=== PATIENT | male | born 1970 | race Caucasian/White ===

== ENCOUNTER 2018-10-04 20:44 | Observation (INO) | payer SELFPAY ==
--- NOTE | 2018-10-04 21:59 | RAD REPORT ---
EXAM DESCRIPTION: CT - Stone Protocol - 10/04/2018 9:42 pm CLINICAL HISTORY: Abdominal pain, abdominal cramping, testicular swelling COMPARISON: None. TECHNIQUE: Axial [address] imaging of the abdomen and pelvis was performed without IV contrast. No IV contrast was given because of allergy, abnormal renal function, patient refusal or physician re quest. Oral contrast was given. All CT scans are performed using dose optimization technique as appropriate and may include automated exposure control or mA/KV adjustment according to patient size. FINDINGS: No suspicious findings in the lung bases. No pericardial thickening or effusion. The liver, spleen and pancreas show no suspicious findings on non-contrast imaging. Gallbladder is co ntracted. No biliary tree dilatation. No hydronephrosis or suspicious renal mass. No significant adrenal finding. Isodense renal masses an d pyelonephritis cannot be excluded in the absence of IV contrast. The urinary bladder is without sig nificant finding. No dilated bowel loops or bowel wall thickening. No free air, pneumatosis or free fluid. No inflammat ory stranding within the peritoneal or retroperitoneal spaces. No hernia, mass or bulky lymphadenopat hy. Edematous/inflammatory stranding is seen in the midline and left-side perineum extending into the scrotum. Prominent scrotal wall edema is present. Fluid attenuation is present. No air in the soft t issues. Bilateral inguinal lymph nodes are present. A few small lymph nodes are seen along the external iliac chain. No acute bone finding. Prominent disc and endplate degenerative change present at L5-S1 with L5 pars defects present. IMPRESSION: Infectious/inflammatory process of the scrotum extending into the fat left-side perineum . No air, abscess or drainable fluid collection in the involved tissues. No extension into the floor th e pelvis. Patient has a few nonspecific reactive type lymph nodes in each groin and along the external iliac va sculature. Full assessment is limited is the absence of IV contrast.
[2018-10-04 22:07] LABS: Absolute Lymphocytes (CBC) 1.9 K/uL (0.7-4.9); Absolute Monocytes 1.2 K/uL (0.1-1.3); Basophils % 0.4 % (0-1.3); Eosinophils % 0.2 % (0-4.4); Hematocrit 42.6 % (39.6-49.0); Lymphocytes % 10.4 % (15.3-44.8); MPV 8.4 fL (7.6-11.3); Monocytes % 6.5 % (3.3-12.3); RBC Red Blood Cell Count 4.72 M/uL (4.33-5.43)
--- NOTE | 2018-10-04 22:11 | RAD REPORT ---
EXAM DESCRIPTION: US - Scrotum Testicles - 10/04/2018 10:00 pm CLINICAL HISTORY: Scrotal pain and swelling COMPARISON: None. FINDINGS: Diffuse thickening and edema of the scrotal wall tissues noted with hyperemia on Doppler e valuation. Small bilateral hydroceles are present. Doppler evaluation shows normal blood flow within the testicular tissue. No intra testicular mass jhon ntified. An 8 millimeter left epididymal cyst is present. Epididymis and testicular tissue does not a ppear abnormally hyperemic. No hernia or other extratesticular abnormality. IMPRESSION: No testicular torsion or intratesticular abnormality. Diffuse scrotal wall thickening and edema.
[2018-10-04 22:23] LABS: Albumin 3.4 g/dL (3.4-5.0); Bilirubin Direct 0.1 mg/dL (0-0.2); Bilirubin Total 0.5 mg/dL (0.2-1.0); Potassium 3.8 mmol/L (3.5-5.1); Protein, Total 8.1 g/dL (6.4-8.2)
[2018-10-04] MEDS ORDERED: FENTANYL CITR 100 MCG/2 ML ONE (22:31)
[2018-10-04 22:41] LABS: Urine Blood TRACE (NEG); Urine Glucose 2+ (NEG); Urine Protein NEGATIVE (NEG)
[2018-10-04] MEDS ORDERED: PIPER/TAZO/NS 3.375gm 3.375 GM/100 ML BAG ONE (22:47)
[2018-10-04 23:38] LABS: Urine Bacteria <20 /HPF (NONE SEEN); Urine Culture Reflex Order NOT NEEDED; Urine RBC <5 /HPF (NONE SEEN)
--- NOTE | 2018-10-05 00:04 | EDPHYS ---
Physician Documentation [facility] Name: Nilesh Flanagan Age: 48 yrs Sex: Male : 1970 Arrival Date: 10/04/2018 Time: 20:52 Bed 28 Private MD: ED Physician Michael Cortes HPI: 10/04 23:55 This 48 yrs old Male presents to ER via Ambulatory with complaints of gs Abdominal Pain. 23:55 The patient presents with scrotal pain, swelling, tenderness. Onset: The gs symptoms/episode began/occurred 2 day(s) ago, and became worse and became persistent. Modifying factors: The symptoms are alleviated by nothing, the symptoms are aggravated by movement. Associated signs and symptoms: Pertinent positives: abdominal pain. Associated signs and symptoms: Pertinent negatives: fever. Severity of symptoms: At their worst the symptoms were moderate, in the emergency department the symptoms are unchanged. The patient has not experienced similar symptoms in the past. The patient has not recently seen a physician. Historical: - Allergies: 20:54 No Known Allergies; ak1 - Home Meds: 20:54 None [Active]; ak1 - PMHx: 20:54 None; ak1 - PSHx: 20:54 None; ak1 - Immunization history:: Adult Immunizations unknown. - Social history:: Smoking status: Patient uses tobacco products, smokes two packs cigarettes per day. - Ebola Screening: : No symptoms or risks identified at this time. ROS: 23:55 All other systems are negative. gs Exam: 23:55 Head/Face: Normocephalic, atraumatic. Eyes: Pupils equal round and reactive to light, gs extra-ocular motions intact. Lids and lashes normal. Conjunctiva and sclera are non-icteric and not injected. Cornea within normal limits. Periorbital areas with no swelling, redness, or edema. ENT: Nares patent. No nasal discharge, no septal abnormalities noted. Tympanic membranes are normal and external auditory canals are clear. Oropharynx with no redness, swelling, or masses, exudates, or evidence of obstruction, uvula midline. Mucous membranes moist. Neck: Trachea midline, no thyromegaly or masses palpated, and no cervical lymphadenopathy. Supple, full range of motion without nuchal rigidity, or vertebral point tenderness. No Meningismus. Chest/axilla: Normal chest wall appearance and motion. Nontender with no deformity. No lesions are appreciated. Cardiovascular: Regular rate and rhythm with a normal S1 and S2. No gallops, murmurs, or rubs. Normal PMI, no JVD. No pulse deficits. Respiratory: Lungs have equal breath sounds bilaterally, clear to auscultation and percussion. No rales, rhonchi or wheezes noted. No increased work of breathing, no retractions or nasal flaring. Back: No spinal tenderness. No costovertebral tenderness. Full range of motion. Skin: Warm, dry with normal turgor. Normal color with no rashes, no lesions, and no evidence of cellulitis. MS/ Extremity: Pulses equal, no cyanosis. Neurovascular intact. Full, normal range of motion. Neuro: Awake and alert, GCS 15, oriented to person, place, time, and situation. Cranial nerves II-XII grossly intact. Motor strength 5/5 in all extremities. Sensory grossly intact. Cerebellar exam normal. Normal gait. 23:55 Constitutional: The patient appears alert, awake. 23:55 Abdomen/GI: Palpation: moderate abdominal tenderness, in the left lower quadrant, rebound tenderness, is not appreciated. 23:55 : Male external genitalia: swelling, tenderness, of the left testicle is noted. Vital Signs: 20:54 BP 156 / 93; Pulse 103; Resp 22; Temp 98; Pulse Ox 98% on R/A; Weight 113.4 kg (R); ak1 Height 5 ft. 7 in. (170.18 cm) (R); Pain 10/10; 22:35 BP 130 / 73; Pulse 90; Resp 18; Pulse Ox 95% on R/A; Pain 5/10; mg2 23:48 BP 154 / 93; Pulse 85; Resp 16; Pulse Ox 96% on R/A; tl3 10/05 00:18 BP 125 / 84; Pulse 78; Resp 18; Temp 98; Pulse Ox 98% on R/A; Pain 0/10; mg2 10/04 20:54 Body Mass Index 39.16 (113.40 kg, 170.18 cm) ak1 MDM: 10/04 21:22 Patient medically screened. gs 23:55 Differential diagnosis: nonspecific abdominal pain, UTI, CELLULITIS,NEC gs FASC,TORSION,ORCHITIS. Data reviewed: vital signs, nurses notes. 10/05 00:01 Response to treatment: the patient's symptoms have mildly improved after treatment, and gs as a result, I will discharge patient. 00:01 Physician consultation: Yamileth Barker MD and will see patient in inpatient room. 10/04 21:25 Order name: Basic Metabolic Panel; Complete Time: 22:26 10/04 21:25 Order name: CBC with Diff; Complete Time: : 10/04 21:25 Order name: Hepatic Function; Complete Time: : 10/04 21:25 Order name: Lipase; Complete Time: : 10/04 21:25 Order name: Urine Microscopic Only; Complete Time: 00: 10/04 22:28 Order name: Blood Culture* 10/04 21:25 Order name: CT Stone Protocol; Complete Time: : 10/04 21:25 Order name: US Scrotum Testicles; Complete Time: 22: 10/04 22:37 Order name: Urine Dipstick--Ancillary (enter results) [facility] 10/05 00:39 Order name: CONS Pharmacy Consult [facility] 10/05 00:39 Order name: CONS Physician Consult [facility] 10/04 21:25 Order name: IV Saline Lock; Complete Time: 21:45 10/04 21:25 Order name: Labs collected and sent; Complete Time: 21:45 10/04 21:25 Order name: Urine Dipstick-Ancillary (obtain specimen); Complete Time: 22:34 10/05 00:39 Order name: Regular EDMS Administered Medications: 10/04 22:23 Drug: fentaNYL (PF) 50 mcg Route: IVP; Site: right forearm; mg2 10/05 00:14 Follow up: Response: No adverse reaction; Marked relief of symptoms; Pain is decreased mg2 10/04 22:49 Drug: Zosyn 3.375 grams Route: IVPB; Infused Over: 60 mins; Site: right forearm; mg2 23:47 Follow up: IV Status: Completed infusion; IV Intake: 100ml tl3 10/05 00:14 Follow up: Response: No adverse reaction; IV Status: Completed infusion mg2 00:14 Drug: Flagyl 500 mg Volume: 100 ml; Route: IVPB; Rate: 200 ml/hr; Infused Over: 30 mg2 mins; Site: right forearm; 01:05 Follow up: Response: No adverse reaction; IV Status: Completed infusion mg2 Disposition: 10/05/18 00:02 Hospitalization ordered by Tomas Mercado for Inpatient Admission. Preliminary diagnosis is Cellulitis of perineum. - Bed requested for Telemetry/MedSurg (Inpatient). - Status is Inpatient Admission. mg2 - Condition is Stable. - Problem is new. - Symptoms have improved. UTI on Admission? No Signatures: Dispatcher [employer] EDMS Iva Calixto RN RN Carolyne Hdz RN RN ak1 Michael Cortes MD MD Jose Hoffman RN RN mg2 Myrna Ty RN tl3 Corrections: (The following items were deleted from the chart) 00:36 00:02 Hospitalization Ordered by Tomas Mercado MD for Inpatient Admission. Preliminary diagnosis is Cellulitis of perineum. Bed requested for Telemetry/MedSurg (Inpatient). Status is Inpatient Admission. Condition is Stable. Problem is new. Symptoms have improved. UTI on Admission? No. 01:06 00:36 10/05/2018 00:02 Hospitalization Ordered by Tomas Mercado MD for Inpatient mg2 Admission. Preliminary diagnosis is Cellulitis of perineum. Bed requested for Telemetry/MedSurg (Inpatient). Status is Inpatient Admission. Condition is Stable. Problem is new. Symptoms have improved. UTI on Admission? No.
--- NOTE | 2018-10-05 00:04 | ER ---
Nurse's Notes [facility] Name: Nilesh Flanagan Age: 48 yrs Sex: Male : 1970 Arrival Date: 10/04/2018 Time: 20:52 Bed 28 Private MD: Diagnosis: Cellulitis of perineum Presentation: 10/04 20:52 Presenting complaint: Patient states: abd cramps with testicular swelling started last ak1 night. pt stated he "pulled my groin, made a hernia" 3 weeks [employer]. Transition of care: patient was not received from another setting of care. Onset of symptoms was October 03, 2018. Risk Assessment: Do you want to hurt yourself or someone else? Patient reports no desire to harm self or others. Care prior to arrival: None. 20:52 Method Of Arrival: Ambulatory ak1 20:52 Acuity: BRYNN 3 ak1 10/05 00:17 Initial Sepsis Screen: Does the patient meet any 2 criteria? No. Patient's initial mg2 sepsis screen is negative. Does the patient have a suspected source of infection? Yes: Other: scrotal. Historical: - Allergies: 10/04 20:54 No Known Allergies; ak1 - Home Meds: 20:54 None [Active]; ak1 - PMHx: 20:54 None; ak1 - PSHx: 20:54 None; ak1 - Immunization history:: Adult Immunizations unknown. - Social history:: Smoking status: Patient uses tobacco products, smokes two packs cigarettes per day. - Ebola Screening: : No symptoms or risks identified at this time. Screenin:49 Abuse screen: Denies threats or abuse. Nutritional screening: No deficits noted. tl3 Tuberculosis screening: No symptoms or risk factors identified. Fall Risk None identified. Assessment: 23:49 Reassessment: pt sleeping heavily, arouses easily, repositioned for comfort. tl3 10/05 00:14 General: Appears in no apparent distress. comfortable, Behavior is calm, cooperative. mg2 Pain: Complains of pain in left testicle and left lower quadrant Pain does not radiate. Pain currently is 2 out of 10 on a pain scale. Quality of pain is described as aching, Pain began gradually, Is intermittent. Neuro: Level of Consciousness is awake, alert, obeys commands, Oriented to person, place, time, situation. Cardiovascular: Capillary refill < 3 seconds Patient's skin is warm and dry. Respiratory: Airway is patent Respiratory effort is even, unlabored, Respiratory pattern is regular, symmetrical. GI: Abdomen is round non-distended. : Reports pain scrotum, testicle, since last week. EENT: No signs and/or symptoms were reported regarding the EENT system. Derm: Skin is intact, is healthy with good turgor, Skin is pink, warm \\T\\ dry. normal. Musculoskeletal: No signs and/or symptoms reported regarding the musculoskeletal system. 00:18 Reassessment: patient informed about the plan for hospitalization, he agreed. mg2 Vital Signs: 10/04 20:54 BP 156 / 93; Pulse 103; Resp 22; Temp 98; Pulse Ox 98% on R/A; Weight 113.4 kg (R); ak1 Height 5 ft. 7 in. (170.18 cm) (R); Pain 10/10; 22:35 BP 130 / 73; Pulse 90; Resp 18; Pulse Ox 95% on R/A; Pain 5/10; mg2 23:48 BP 154 / 93; Pulse 85; Resp 16; Pulse Ox 96% on R/A; tl3 10/05 00:18 BP 125 / 84; Pulse 78; Resp 18; Temp 98; Pulse Ox 98% on R/A; Pain 0/10; mg2 10/04 20:54 Body Mass Index 39.16 (113.40 kg, 170.18 cm) ak1 ED Course: 10/04 20:52 Patient arrived in ED. ag3 20:53 Triage completed. ak1 20:54 Arm band placed on Patient placed in an exam room, on a stretcher, Patient notified of ak1 wait time. 20:59 Michael Cortes MD is Attending Physician. gs 21:26 Jose Hoffman, ELLI is Primary Nurse. mg2 21:44 CT Stone Protocol In Process Unspecified. EDMS 22:00 US Scrotum Testicles In Process Unspecified. EDMS 22:00 Ultrasound completed. Patient tolerated well. sg3 23:49 Patient has correct armband on for positive identification. Bed in low position. Call tl3 light in reach. Side rails up X 1. Pulse ox on. NIBP on. 23:49 No provider procedures requiring assistance completed. tl3 10/05 00:02 Tomas Mercado MD is Hospitalizing Provider. gs 00:16 Inserted saline lock: 20 gauge in right forearm, using aseptic technique. Blood mg2 collected. 00:52 Patient admitted, IV remains in place. mg2 Administered Medications: 10/04 22:23 Drug: fentaNYL (PF) 50 mcg Route: IVP; Site: right forearm; mg2 10/05 00:14 Follow up: Response: No adverse reaction; Marked relief of symptoms; Pain is decreased mg2 10/04 22:49 Drug: Zosyn 3.375 grams Route: IVPB; Infused Over: 60 mins; Site: right forearm; mg2 23:47 Follow up: IV Status: Completed infusion; IV Intake: 100ml tl3 10/05 00:14 Follow up: Response: No adverse reaction; IV Status: Completed infusion mg2 00:14 Drug: Flagyl 500 mg Volume: 100 ml; Route: IVPB; Rate: 200 ml/hr; Infused Over: 30 mg2 mins; Site: right forearm; 01:05 Follow up: Response: No adverse reaction; IV Status: Completed infusion mg2 Intake: 10/04 23:47 IV: 100ml; Total: 100ml. tl3 Outcome: 10/05 00:02 Decision to Hospitalize by Provider. gs 00:53 Admitted to Tele accompanied by tech, via wheelchair, room 430, with chart, Report mg2 called to ELLI Bain 00:53 Condition: stable 00:53 Instructed on the need for admit, Demonstrated understanding of instructions, follow-up care. 01:06 Patient left the ED. mg2 Signatures: Dispatcher [employer] EDMS Carolyne Hdz RN RN ak1 Michael Cortes MD MD Rosalina Neri 3 Myrna Ty RN RN tl3 Jose Hoffman RN RN mg2 Maggie Berry 3
[2018-10-05] MEDS ORDERED: METRONIDAZOLE 500mg IVPB 500 MG/100 ML BAG IV ONE (00:22)
[2018-10-05] MEDS ORDERED: ACETAMINOPHEN 500 MG TAB PO PRN (00:35)
[2018-10-05] MEDS ORDERED: MORPHINE 4 MG/ML SYR IV PRN (00:35)
[2018-10-05] MEDS ORDERED: ONDANSETRON 4 MG/2 ML VIAL IV PRN (00:35)
[2018-10-05] MEDS ORDERED: NA CHLORIDE 0.9% 1,000 ML IV SCH (01:00)
[2018-10-05] MEDS ORDERED: VANCOMYCIN 1.25 GM in NA CHLORIDE 0.9% 250 ML IVPB SCH (01:00)
[2018-10-05] MEDS ORDERED: VANCOMYCIN 1 GM/VIAL ONE ×2 (01:53→04:57)
[2018-10-05] MEDS ORDERED: VANCOMYCIN 500 MG/VIAL ONE (01:54)
[2018-10-05] MEDS ORDERED: NA CHLORIDE 0.9% 250 ML ONE (01:55)
[2018-10-05 03:58] VITALS: BMI 41.4
[2018-10-05] MEDS ORDERED: VANCOMYCIN 750 MG in NA CHLORIDE 0.9% 150 ML IVPB ONE (04:00)
[2018-10-05] MEDS ORDERED: NA CHLORIDE 0.9% 100 ML IV ONE ×2 (04:57→05:31)
[2018-10-05] MEDS ORDERED: PIPERACIL/TAZO 4.5 GM VIAL IV ONE (05:02)
[2018-10-05] MEDS: PIPER/TAZO/NS 4.5gm 4.5 GM/100 ML BAG IVPB SCH ×2 (06:00→12:17)
--- NOTE | 2018-10-05 07:51 | P.HP ---
Certification for Inpatient Patient admitted to: Inpatient With expected LOS: >2 Midnights Patient will require the following post-hospital care: None Practitioner: I am a practitioner with admitting privileges, knowledge of patient current condition, hospital course, and medical plan of care. Services: Services provided to patient in accordance with Admission requirements found in Title 42 Section 412.3 of the Code of Federal Regulations Patient History Date of Service: 10/05/18 Reason for admission: Scrotal cellulitis History of Present Illness: Patient is a 48-year-old gentleman who came into the hospital with scrotal cellulitis. Patient's cellulitis is worse over the last 4 days. He finally came into the hospital for further evaluation. He is at erythema and he said he has noted some bloody drainage. Otherwise no other complaints. He will need to have admission for IV antibiotics. The we have also Consulted Dr. Barker urology. Patient will be evaluated further later today. Continue with IV antibiotic therapy at this time. Allergies No Known Drug Allergies Allergy (Verified 10/05/18 01:37) Unknown No Known Allergies Allergy (Uncoded 09/19/17 04:12) Unknown Home Medications: NK [No Home Meds] 10/05/18 - Past Medical/Surgical History Has patient received pneumonia vaccine in the past: No Diabetic: No Past Medical History: Patient denies medical history Past Surgical History: Patient denies surgical history - Family History Father Family History: Reviewed- Non-Contributory - Social History Smoking Status: Never smoker Alcohol use: No CD- Drugs: No Caffeine use: Yes Place of Residence: Home Review of Systems 10-point ROS is otherwise unremarkable Physical Examination - Vital Signs Temperature: 98.1 F Blood Pressure: 128/69 Pulse: 79 Respirations: 18 Pulse Ox (%): 98 - Physical Exam General: Alert, In no apparent distress, Oriented x3 HEENT: Atraumatic, PERRLA, Mucous membr. moist/pink, EOMI, Sclerae nonicteric Neck: Supple, 2+ carotid pulse no bruit, No LAD, Without JVD or thyroid abnormality Respiratory: Clear to auscultation bilaterally, Normal air movement Cardiovascular: Regular rate/rhythm, Normal S1 S2, No murmurs Gastrointestinal: Normal bowel sounds, Soft and benign, Non-distended, No tenderness Musculoskeletal: No clubbing, No swelling, No tenderness Integumentary: No rashes Neurological: Normal gait, Normal speech, Normal strength at 5/5 x4 extr, Normal tone, Sensation intact, Cranial nerves 3-12 intact, Normal affect Lymphatics: No axilla or inguinal lymphadenopathy - Studies Laboratory Data (last 24 hrs) 10/04/18 21:30: WBC 18.2 H, Hgb 14.7, Hct 42.6, Plt Count 261 10/04/18 21:30: Sodium 132 L, Potassium 3.8, BUN 10, Creatinine 1.00, Glucose 226 H, Total Bilirubin 0.5, AST 12 L, ALT 31, Alkaline Phosphatase 79, Lipase 74 Male Exam - Male Exam Scrotum: Edema, Tenderness Assessment & Plan - Problems (Diagnosis) (1) Cellulitis, scrotum Current Visit: Yes Status: Acute - Plan 1. Continue with IV antibiotic 2. Continue with local wound care 3. Urology consultation 4. Gentle IV hydration 5. Monitor CBC 6. Pain control 7. GI and DVT prophylaxis Discharge Plan: Home Plan to discharge in: Greater than 2 days - Advance Directives Does patient have a Living Will: No Does patient have a Durable POA for Healthcare: No - Code Status/Comfort Care Code Status Assessed: Yes Code Status: Full Code Critical Care: No Time Spent Managing PTS Care (In Minutes): 45
[2018-10-05] MEDS ORDERED: INFLUENZA VACCINE (for 3y+) 0.5 ML DOSE IMVAC ONE (08:00)
[2018-10-05] MEDS ORDERED: TRAMADOL HCL 50 MG TAB PO PRN (08:32)
[2018-10-05] MEDS ORDERED: HYDROCODONE/APAP 7.5/325 MG TAB PO PRN (08:32)
[2018-10-05 09:22] LABS: Absolute Lymphocytes (CBC) 1.7 K/uL (0.7-4.9); Absolute Monocytes 1.1 K/uL (0.1-1.3); Absolute Neutrophil 13.6 K/uL (1.8-8.0); Basophils % 0.6 % (0-1.3); Eosinophils % 0.6 % (0-4.4); Hematocrit 43.3 % (39.6-49.0); Lymphocytes % 10.1 % (15.3-44.8); MPV 8.3 fL (7.6-11.3); Monocytes % 6.6 % (3.3-12.3); RBC Red Blood Cell Count 4.78 M/uL (4.33-5.43)
--- NOTE | 2018-10-05 11:47 | P.DS ---
Admission Date: 10/05/18 Discharge Date: 10/05/18 Primary Care Provider: none Disposition: ROUTINE DISCHARGE Discharge Condition: GOOD Reason for Admission: Scrotal cellulitis Consultations: Urology-Dr. Barker Procedures: Scrotal US: COMPARISON: None. FINDINGS: Diffuse thickening and edema of the scrotal wall tissues noted with hyperemia on Doppler evaluation. Small bilateral hydroceles are present. Doppler evaluation shows normal blood flow within the testicular tissue. No intra testicular mass identified. An 8 millimeter left epididymal cyst is present. Epididymis and testicular tissue does not appear abnormally hyperemic. No hernia or other extratesticular abnormality. IMPRESSION: No testicular torsion or intratesticular abnormality. Diffuse scrotal wall thickening and edema. CT scan: COMPARISON: None. TECHNIQUE: Axial [address] imaging of the abdomen and pelvis was performed without IV contrast. No IV contrast was given because of allergy, abnormal renal function, patient refusal or physician request. Oral contrast was given. All CT scans are performed using dose optimization technique as appropriate and may include automated exposure control or mA/KV adjustment according to patient size. FINDINGS: No suspicious findings in the lung bases. No pericardial thickening or effusion. The liver, spleen and pancreas show no suspicious findings on non-contrast imaging. Gallbladder is contracted. No biliary tree dilatation. No hydronephrosis or suspicious renal mass. No significant adrenal finding. Isodense renal masses and pyelonephritis cannot be excluded in the absence of IV contrast. The urinary bladder is without significant finding. No dilated bowel loops or bowel wall thickening. No free air, pneumatosis or free fluid. No inflammatory stranding within the peritoneal or retroperitoneal spaces. No hernia, mass or bulky lymphadenopathy. Edematous/inflammatory stranding is seen in the midline and left-side perineum extending into the scrotum. Prominent scrotal wall edema is present. Fluid attenuation is present. No air in the soft tissues. Bilateral inguinal lymph nodes are present. A few small lymph nodes are seen along the external iliac chain. No acute bone finding. Prominent disc and endplate degenerative change present at L5-S1 with L5 pars defects present. IMPRESSION: Infectious/inflammatory process of the scrotum extending into the fat left-side perineum. No air, abscess or drainable fluid collection in the involved tissues. No extension into the floor the pelvis. Patient has a few nonspecific reactive type lymph nodes in each groin and along the external iliac vasculature. Medical problem list: Left scrotal cellulitis New diagnosis diabetes type 2 Elevated blood pressure without hypertension Obesity, BMI 41.5 Brief History of Present Illness: 48-year-old male presented to the emergency room with inflammation to the left scrotal region. This is been present for several days. Patient seen and evaluated in the emergency room. Patient found to have left scrotal cellulitis. Scrotal ultrasound negative. CT scan showed inflammation indicating cellulitis to the left scrotal region. No abscess identified. Patient admitted for treatment. Hospital Course: Patient seen in evaluated for left scrotal cellulitis. CT scan revealed no abscess. Patient seen and evaluated by urology. Patient desired to go home as he has a sick father that requires attention. White count improved. Urology felt no need for surgical intervention. Urology recommends medical management. At discharge he will continue with Augmentin 875 mg 1 pill twice daily for 10 days. A limited supply of tramadol 50 mg 1 pill 3 times a day as needed for pain will be provided. Patient will need a follow up with urology within 1 week to follow up this hospitalization. Patient found to have diabetes. Hemoglobin A1c 8.0. At discharge patient will be started on metformin 500 mg 1 pill twice daily. Recommendation is to maintain blood sugars less 140 fasting and less than 200 after meals. Further adjustment in his medication may be required. Patient will need to establish care with a local PCP to continue his care. Lifestyle modification education provided. Patient had mild elevation in blood pressure. No hypertension identified. He will need to monitors blood pressures daily. If blood pressures remain above 140/90 consistently the patient may require medication. This can be further addressed by his PCP. Vital Signs/Physical Exam: Temp Pulse Resp BP Pulse Ox 98.9 F 85 24 H 143/66 H 94 10/05/18 08:00 10/05/18 08:00 10/05/18 08:00 10/05/18 08:00 10/05/18 08:00 General: Alert, In no apparent distress, Oriented x3, Cooperative HEENT: Atraumatic Neck: Supple Respiratory: Clear to auscultation bilaterally, Normal air movement Cardiovascular: Normal pulses, Regular rate/rhythm Gastrointestinal: Normal bowel sounds, Soft and benign, Non-distended, No tenderness, No masses, No rebound, No guarding Musculoskeletal: No tenderness, No warmth, Other (Minimal erythema to the left scrotal region. No abscess noted. No exudate noted.) Neurological: Normal speech, Normal strength at 5/5 x4 extr, Normal tone, Normal affect External genitalia: Other (Uncircumcised male.) Laboratory Data at Discharge: WBC 16.5 K/uL (4.3-10.9) H 10/05/18 09:04 Hgb 14.5 g/dL (13.6-17.9) 10/05/18 09:04 Hct 43.3 % (39.6-49.0) 10/05/18 09:04 Plt Count 254 K/uL (152-406) 10/05/18 09:04 Sodium 132 mmol/L (136-145) L 10/04/18 21:30 Potassium 3.8 mmol/L (3.5-5.1) 10/04/18 21:30 BUN 10 mg/dL (7-18) 10/04/18 21:30 Creatinine 1.00 mg/dL (0.55-1.3) 10/04/18 21:30 Glucose 226 mg/dL (74-106) H 10/04/18 21:30 Total Bilirubin 0.5 mg/dL (0.2-1.0) 10/04/18 21:30 AST 12 U/L (15-37) L 10/04/18 21:30 ALT 31 U/L (12-78) 10/04/18 21:30 Alkaline Phosphatase 79 U/L (45-117) 10/04/18 21:30 Lipase 74 U/L (73-393) 10/04/18 21:30 Home Medications: Amoxicillin/Potassium Clav [Augmentin 875-125 Tablet] 1 each PO BID #20 tablet 10/05/18 Metformin HCl 500 mg PO BID #60 tablet 10/05/18 traMADol HCL [Ultram*] 50 mg PO TID PRN #15 tab 10/05/18 New Medications: Amoxicillin/Potassium Clav [Augmentin 875-125 Tablet] 1 each PO BID #20 tablet Metformin HCl 500 mg PO BID #60 tablet traMADol HCL [Ultram*] 50 mg PO TID PRN #15 tab PRN Reason: Pain Mild Patient Discharge Instructions: 1. Patient will need to follow up with a PCP to establish care and to further address his condition. 2. Patient seen in evaluated for left scrotal cellulitis. CT scan revealed no abscess. Patient seen and evaluated by urology. White count improved. Urology felt no need for surgical intervention. Urology recommends medical management. At discharge he will continue with Augmentin 875 mg 1 pill twice daily for 10 days. A limited supply of tramadol 50 mg 1 pill 3 times a day as needed for pain will be provided. Patient will need a follow up with urology within 1 week to follow up this hospitalization. 3. Patient found to have diabetes. Hemoglobin A1c 8.0. At discharge patient will be started on metformin 500 mg 1 pill twice daily. Recommendation is to maintain blood sugars less 140 fasting and less than 200 after meals. Further adjustment in his medication may be required. Patient will need to establish care with a local PCP to continue his care. Lifestyle modification education provided. 4. Patient had mild elevation in blood pressure. No hypertension identified. He will need to monitors blood pressures daily. If blood pressures remain above 140/90 consistently the patient may require medication. This can be further addressed by his PCP. Diet: ADA Activity: Ad shady Time spent managing pt's care (in minutes): 55
[2018-10-05 11:49] VITALS: O2SAT 94
--- NOTE | 2018-10-05 12:15 | CON ---
History Of Present Illness: This is a 48-year-old gentleman who was in good state of health until 3 weeks ago. Started feeling some strain in the lower groin area, but the pain disappeared and 4 days ago started having some swelling with pain at 10/10, so he came to the emergency room last night. He said there had been no redness. He was admitted for scrotal cellulitis last night. CT scan showed some inflammatory areas in the perineum. An ultrasound showed diffuse scrotal wall thickening and ed brooks. He has had no fevers or chills. He says his swelling is down today. His pain is down to 3-4/1 0. He has no fever, chills, nausea, vomiting, diarrhea, constipation. He has no lower urinary tract symptoms. No kidney stones. No bladder issues. No scrotal problems before. No testicular problem s. No penile problems. No diabetes. No rectal issues. Interestingly, when [place] was [place] [address], with another white count pending right now. The issue is that he says he has an 80-year-old father at home that does not know how to feed himself and he would like to go home to ke care of his father, so we will repeat a white count, see if it is coming down and in that case I humaira ponce we could possibly send him home on p.o. Augmentin or something similar to that. If he agrees to return if he gets worse, I believe in that case, we can make that an exception for him. Past Medical History: No diabetes. Past Surgical History: None. Family History: Noncontributory. Social History: Nonsmoker. No drug use. Some caffeine use. He resides at home with his 80-year-ol d dad, who is not able to take care of himself. Review of Systems: A 10-point review of systems otherwise unremarkable. Physical Examination: General: The patient was afebrile, stable. In general, he is alert, apparently in good health and o riented x3. HEENT: Atraumatic, normocephalic. Neck: Supple. Respiratory: Clear. Cardiovascular: S1-S2. Gastrointestinal: Normal bowel sounds. Musculoskeletal: No swelling, no tenderness. Skin: No rashes. Urologic: Penis was uncircumcised. No lesion. Scrotum, both testicles were descended. He has some phlegmon on the left side extending down to the perineum, but there was no fluctuance. There were n o redness and no super tenderness in the area. Rectal: Examination was deferred at this point. Laboratory Data: Reviewed. White count was 87147. H and H and platelets normal. Chemistry shows s odium 132, still on the low side. Glucose was 226, slightly high. Rest of the electrolytes were nor mal. Ultrasound reviewed. CT scan reviewed. Assessment: Inflammatory cellulitis of the scrotal, left perineal area. Plan: To repeat white count. If it is normalizing and the patient is afebrile, is improving, I clayton chu we can make an exception, send him home on p.o. antibiotics, possible Augmentin. 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 He can follow up with me in about a week, and if he is yoly ling to return if things get worse, I believe it is okay to let him go. TOY/KRUPAL Voice ID: [id number] Report ID: [id number]
[2018-10-05 13:06] VITALS: BP 129/83; TEMP 98
[2018-10-05] MEDS ORDERED: VANCOMYCIN 2 GM in NA CHLORIDE 0.9% 500 ML IVPB SCH (16:00)
== END 2018-10-05 14:30 | disposition home or self-care (01) ==
LOC: ER 20:44 → 4TH 10-05 00:36
PROVIDERS: ADMIT Hospitalist; ATTEND Hospitalist
DX: N49.2 Inflammatory disorders of scrotum (principal); E11.9 Type 2 diabetes mellitus without complications; R03.0 Elevated blood-pressure reading, without diagnosis of hypertension; E66.9 Obesity, unspecified; Z68.41 Body mass index [BMI] 40.0-44.9, adult; Z23 Encounter for immunization
CPT/HCPCS: 36415; 74176; 76377; 76870; 80048; 80076; 81003; 81015; 83036; 83690; 85025; 87040; G0008; G0378; J2543; J3010; J7030; Q2035

== ENCOUNTER 2019-04-20 18:39 | Inpatient (IN) | payer SELFPAY ==
[2019-04-20 19:37] LABS: Absolute Lymphocytes (CBC) 1.6 K/uL (0.7-4.9); Basophils % 0.4 % (0-1.3); Hematocrit 40.9 % (39.6-49.0); Lymphocytes % 10.5 % (15.3-44.8); MPV 8.6 fL (7.6-11.3); RBC Red Blood Cell Count 4.42 M/uL (4.33-5.43)
[2019-04-20 19:49] LABS: Potassium 3.7 mmol/L (3.5-5.1)
[2019-04-20] MEDS ORDERED: DIAZEPAM 10 MG/2 ML INJ SYRINGE ONE (20:05)
[2019-04-20] MEDS ORDERED: VANCOMYCIN 1 GM/VIAL ONE (20:16)
[2019-04-20] MEDS ORDERED: Levofloxacin500mg IV 500 MG/100 ML BAG IV ONE (20:17)
[2019-04-20] MEDS ORDERED: NA CHLORIDE 0.9% 250 ML ONE (20:17)
--- NOTE | 2019-04-20 20:39 | RAD REPORT ---
EXAM DESCRIPTION: US - Extremity Nonvascular Limited - 04/20/2019 8:24 pm CLINICAL HISTORY: Swelling of the perineum COMPARISON: None. FINDINGS: Limited sonographic evaluation in the perineum was performed. In the perineum soft tissues between the scrotum and anus there is a 4.3 x 2.8 x 2.1 heterogeneous hypoechoic collection. Central ly this mass is anechoic. Abscess in the perineum is the most likely etiology.
--- NOTE | 2019-04-20 22:18 | EDPHYS ---
Physician Documentation [facility] Name: Nilesh Flanagan Age: 49 yrs Sex: Male : 1970 Arrival Date: 04/20/2019 Time: 18:42 Bed 20 Private MD: ED Physician Evans Lopez HPI: 04/20 21:55 This 49 yrs old Male presents to ER via Ambulatory with complaints of jr8 Testicular Swelling. 21:55 Onset: The symptoms/episode began/occurred gradually, 4 day(s) ago. Modifying factors: jr8 The symptoms are alleviated by nothing, the symptoms are aggravated by movement, pressure. Associated signs and symptoms: The patient has no apparent associated signs or symptoms. Severity of symptoms: At their worst the symptoms were moderate, in the emergency department the symptoms are unchanged. The patient has experienced a previous episode. The patient has not recently seen a physician. 21:56 Patient stated that he has had perineum abscess in past and thinks he has another one. jr8 Stated that he is tender and having swelling from the base of his testicles to his buttock . Historical: - Allergies: 18:44 No Known Drug Allergies; hj - PMHx: 18:44 Diabetes - NIDDM; hj - PSHx: 18:44 None; hj - Immunization history:: Adult Immunizations not up to date. - Social history:: Smoking status: Patient uses tobacco products, smokes one-half pack cigarettes per day. - Ebola Screening: : No symptoms or risks identified at this time. ROS: 21:56 Eyes: Negative for injury, pain, redness, and discharge, ENT: Negative for injury, jr8 pain, and discharge, Neck: Negative for injury, pain, and swelling, Cardiovascular: Negative for chest pain, palpitations, and edema, Respiratory: Negative for shortness of breath, cough, wheezing, and pleuritic chest pain, Abdomen/GI: Negative for abdominal pain, nausea, vomiting, diarrhea, and constipation, Back: Negative for injury and pain, MS/Extremity: Negative for injury and deformity, Neuro: Negative for headache, weakness, numbness, tingling, and seizure. 21:56 Skin: Positive for abscess, cellulitis, of the buttocks and pelvis. Exam: 21:56 Eyes: Pupils equal round and reactive to light, extra-ocular motions intact. Lids and jr8 lashes normal. Conjunctiva and sclera are non-icteric and not injected. Cornea within normal limits. Periorbital areas with no swelling, redness, or edema. ENT: Nares patent. No nasal discharge, no septal abnormalities noted. Tympanic membranes are normal and external auditory canals are clear. Oropharynx with no redness, swelling, or masses, exudates, or evidence of obstruction, uvula midline. Mucous membranes moist. Neck: Trachea midline, no thyromegaly or masses palpated, and no cervical lymphadenopathy. Supple, full range of motion without nuchal rigidity, or vertebral point tenderness. No Meningismus. Cardiovascular: Regular rate and rhythm with a normal S1 and S2. No gallops, murmurs, or rubs. Normal PMI, no JVD. No pulse deficits. Respiratory: Lungs have equal breath sounds bilaterally, clear to auscultation and percussion. No rales, rhonchi or wheezes noted. No increased work of breathing, no retractions or nasal flaring. Abdomen/GI: Soft, non-tender, with normal bowel sounds. No distension or tympany. No guarding or rebound. No evidence of tenderness throughout. Back: No spinal tenderness. No costovertebral tenderness. Full range of motion. MS/ Extremity: Pulses equal, no cyanosis. Neurovascular intact. Full, normal range of motion. Neuro: Awake and alert, GCS 15, oriented to person, place, time, and situation. Cranial nerves II-XII grossly intact. Motor strength 5/5 in all extremities. Sensory grossly intact. Cerebellar exam normal. Normal gait. 21:56 Skin: Patient has swelling and induration to perineum on left side that extends from base of testicles to inferior portion of the gluteal cleft. No draining present . Vital Signs: 18:44 BP 132 / 77; Pulse 109; Resp 18; Temp 98.3(O); Pulse Ox 95% on R/A; Weight 113.4 kg; hj Height 5 ft. 6 in. (167.64 cm); Pain 10/10; 19:26 BP 119 / 61; Pulse 83; Resp 20 S; Temp 98.6(O); Pulse Ox 96% on R/A; cc3 20:45 BP 127 / 67; Pulse 78; Resp 19 S; Pulse Ox 97% on R/A; cc3 21:05 BP 111 / 66; Pulse 82; Resp 19 S; Pulse Ox 96% on R/A; cc3 22:06 BP 120 / 58; Pulse 94; Resp 18 S; Pulse Ox 96% on R/A; cc3 23:10 BP 106 / 78; Pulse 81; Resp 18 S; Pulse Ox 96% on R/A; cc3 18:44 Body Mass Index 40.35 (113.40 kg, 167.64 cm) hj MDM: 18:54 Patient medically screened. jr8 21:56 Data reviewed: vital signs, nurses notes, lab test result(s), radiologic studies, CT jr8 scan, ultrasound. Data interpreted: Pulse oximetry: on room air is 96 %. Interpretation: normal. Counseling: I had a detailed discussion with the patient and/or guardian regarding: the historical points, exam findings, and any diagnostic results supporting the discharge/admit diagnosis, lab results, radiology results, the need for further work-up and treatment in the hospital. ED course: US was completed along with blood work. Discussed case with Dr. Stapleton. Wants CT completed as well which is now in process. Waiting for results . 22:15 ED course: CT shows left perineal abscess. Dr. Stapleton accepted and will consult on jr8 case. NPO midnight. Hospitalist to admit . 04/20 19:04 Order name: CBC with Diff; Complete Time: 19:54 jr8 04/20 19:04 Order name: Basic Metabolic Panel; Complete Time: 19:54 jr8 04/20 19:04 Order name: Blood Culture Adult (2) jr8 04/20 19:04 Order name: Procalcitonin; Complete Time: 20:19 jr8 04/20 22:28 Order name: CBC with Automated Diff EDMS 04/20 22:28 Order name: CBC with Automated Diff EDMS 04/20 19:04 Order name: US Extrmty Nonvasular Limited; Complete Time: 20:40 jr8 04/20 22:28 Order name: Comprehensive Metabolic Panel EDMS 04/20 22:28 Order name: Comprehensive Metabolic Panel EDMS 04/20 22:28 Order name: Magnesium EDMS 04/20 22:28 Order name: Magnesium EDMS 04/20 22:28 Order name: Phosphorus EDMS 04/20 22:28 Order name: Phosphorus EDMS 08/04 22:30 Order name: Urinalysis [facility] 04/20 19:04 Order name: IV; Complete Time: 19:29 [facility] 04/20 20:43 Order name: CT Pelvis w cont [facility] 04/20 22:28 Order name: CONS Physician Consult [facility] 04/20 22:28 Order name: NPO EDGA Administered Medications: 20:08 Drug: Valium 5 mg Route: IVP; Site: right antecubital; rr5 20:35 Follow up: Response: No adverse reaction; Marked relief of symptoms cc3 20:15 Drug: LevaQUIN 500 mg Volume: 100 ml; Route: IVPB; Infused Over: 60 mins; Site: right cc3 antecubital; 21:15 Follow up: Response: No adverse reaction; IV Status: Completed infusion; IV Intake: cc3 100ml 21:15 Drug: vancoMYCIN 1 grams Route: IVPB; Infused Over: 2 hrs; Site: right antecubital; cc3 23:40 Follow up: Response: No adverse reaction; IV Status: Completed infusion; IV Intake: cc3 250ml 22:20 Drug: morphine 4 mg Route: IVP; Site: right antecubital; cc3 23:00 Follow up: Response: No adverse reaction; Pain is decreased cc3 22:25 Drug: Zofran 4 mg Route: IVP; Site: right antecubital; cc3 23:00 Follow up: Response: No adverse reaction; Nausea is decreased cc3 Disposition: 04/20/19 22:16 Hospitalization ordered by Tomas Mercado for Inpatient Admission. Preliminary diagnosis is Cutaneous abscess of other sites - Perineum . - Bed requested for Telemetry/MedSurg (Inpatient). - Status is Inpatient Admission. cc3 - Condition is Stable. - Problem is new. - Symptoms have improved. UTI on Admission? No Addendum: 04/22/2019 19:53 Co-signature as Attending Physician, Evans Lopez MD. r n Signatures: Dispatcher [employer] [facility] Iva Calixto RN RN mw Nieto, Roman, MD MD rn Roszak, Josh, PA PA 8 Derrick Galaviz RN RN hj Cordel, Charlene cc3 Varun Brower RN RN rr5 Corrections: (The following items were deleted from the chart) 04/20 21:56 21:55 Onset: The symptoms/episode began/occurred gradually, 2 day(s) ago, jr8 jr8 22:17 22:16 Hospitalization Ordered by Tomas Mercado MD for Inpatient Admission. Preliminary jr8 diagnosis is Cutaneous abscess of other sites. Bed requested for Telemetry/MedSurg (Inpatient). Status is Inpatient Admission. Condition is Stable. Problem is new. Symptoms have improved. UTI on Admission? No. jr8 22:50 22:17 04/20/2019 22:16 Hospitalization Ordered by Tomas Mercado MD for Inpatient mw Admission. Preliminary diagnosis is Cutaneous abscess of other sites - Perineum . Bed requested for Telemetry/MedSurg (Inpatient). Status is Inpatient Admission. Condition is Stable. Problem is new. Symptoms have improved. UTI on Admission? No. jr8 23:49 22:50 04/20/2019 22:16 Hospitalization Ordered by Tomas Mercado MD for Inpatient cc3 Admission. Preliminary diagnosis is Cutaneous abscess of other sites - Perineum . Bed requested for Telemetry/MedSurg (Inpatient). Status is Inpatient Admission. Condition is Stable. Problem is new. Symptoms have improved. UTI on Admission? No. mw
--- NOTE | 2019-04-20 22:18 | ER ---
Nurse's Notes [facility] Name: Nilesh Flanagan Age: 49 yrs Sex: Male : 1970 Arrival Date: 04/20/2019 Time: 18:42 Bed 20 Private MD: Diagnosis: Cutaneous abscess of other sites-Perineum Presentation: 04/20 18:42 Presenting complaint: Patient states: this started Sunday, swelling in my L hj testicle, in between my rectum and now its spreading to the L butt cheeks and L leg area; reports fever and chills;. Transition of care: patient was not received from another setting of care. Onset of symptoms was April 20, 2019. Risk Assessment: Do you want to hurt yourself or someone else? Patient reports no desire to harm self or others. Initial Sepsis Screen: Does the patient meet any 2 criteria? HR > 90 bpm. Yes Does the patient have a suspected source of infection? Yes: Skin breakdown/wound. Care prior to arrival: None. 18:42 Method Of Arrival: Ambulatory 18:42 Acuity: BRYNN 3 hj Triage Assessment: 19:15 General: Appears in no apparent distress. uncomfortable, Behavior is calm, cooperative, cc3 appropriate for age. Pain: Complains of pain in testicular area. Historical: - Allergies: 18:44 No Known Drug Allergies; hj - PMHx: 18:44 Diabetes - NIDDM; hj - PSHx: 18:44 None; hj - Immunization history:: Adult Immunizations not up to date. - Social history:: Smoking status: Patient uses tobacco products, smokes one-half pack cigarettes per day. - Ebola Screening: : No symptoms or risks identified at this time. Screenin:15 Abuse screen: Denies threats or abuse. Denies injuries from another. Nutritional cc3 screening: No deficits noted. Tuberculosis screening: No symptoms or risk factors identified. Fall Risk Ambulatory Aid- None/Bed Rest/Nurse Assist (0 pts). Gait- Normal/Bed Rest/Wheelchair (0 pts) Mental Status- Oriented to own ability (0 pts). Assessment: 19:15 Reassessment: Patient appears in no apparent distress at this time. Patient and/or cc3 family updated on plan of care and expected duration. Pain level reassessed. Patient is alert, oriented x 3, equal unlabored respirations, skin warm/dry/pink. Received this male patient from morning shift [facility] as a case of testicular swelling. Still being seen by OSCAR Bustamante awaiting orders. General: Appears in no apparent distress. uncomfortable, Behavior is calm, cooperative, appropriate for age. Pain: Complains of pain in testicular area. Neuro: Level of Consciousness is awake, alert, obeys commands, Oriented to person, place, time, situation, Appropriate for age. Cardiovascular: Denies chest pain, Capillary refill < 3 seconds Patient's skin is warm and dry. Respiratory: Airway is patent Respiratory effort is even, unlabored, Respiratory pattern is regular, symmetrical. GI: Abdomen is round obese. : No signs and/or symptoms were reported regarding the genitourinary system. EENT: No signs and/or symptoms were reported regarding the EENT system. Derm: Skin is intact, is healthy with good turgor, Skin is pink, warm \T\ dry. normal. Musculoskeletal: Circulation, motion, and sensation intact. Range of motion: intact in all extremities. 20:05 Reassessment: patient complaining of cramps and cannot stay still while doing the rr5 ultrasound. ED provider informed with order made and carried out. 20:30 Reassessment: Patient appears in no apparent distress at this time. Patient and/or cc3 family updated on plan of care and expected duration. Pain level reassessed. Patient is alert, oriented x 3, equal unlabored respirations, skin warm/dry/pink. Ultrasound done bedside, awaiting result. Patient denies pain at this time. Patient states feeling better. Patient states symptoms have improved. 21:17 Reassessment: Patient appears in no apparent distress at this time. Patient and/or cc3 family updated on plan of care and expected duration. Pain level reassessed. Patient is alert, oriented x 3, equal unlabored respirations, skin warm/dry/pink. Patient taken by broadcast operations technician to their department by stretcher. 21:40 Reassessment: Patient appears in no apparent distress at this time. Patient and/or cc3 family updated on plan of care and expected duration. Pain level reassessed. Patient is alert, oriented x 3, equal unlabored respirations, skin warm/dry/pink. Patient came back from CT scan department, awaiting result. Patient denies pain at this time. 22:06 Reassessment: Patient appears in no apparent distress at this time. Patient and/or cc3 family updated on plan of care and expected duration. Pain level reassessed. Patient is alert, oriented x 3, equal unlabored respirations, skin warm/dry/pink. Patient denies pain at this time. 23:10 Reassessment: Patient appears in no apparent distress at this time. Patient and/or cc3 family updated on plan of care and expected duration. Pain level reassessed. Patient is alert, oriented x 3, equal unlabored respirations, skin warm/dry/pink. Patient for admission, room available in 225, report called and handed over to ELLI Brower for continuity of care and management. Patient denies pain at this time. Patient states feeling better. Patient states symptoms have improved. 23:45 Reassessment: Patient appears in no apparent distress at this time. Patient and/or cc3 family updated on plan of care and expected duration. Pain level reassessed. Patient is alert, oriented x 3, equal unlabored respirations, skin warm/dry/pink. Patient left ER for admission vitally stable by wheelchair escorted by senior laboratory technician David. No valuables left in the patient's room. Patient denies pain at this time. Patient states feeling better. Patient states symptoms have improved. Vital Signs: 18:44 BP 132 / 77; Pulse 109; Resp 18; Temp 98.3(O); Pulse Ox 95% on R/A; Weight 113.4 kg; hj Height 5 ft. 6 in. (167.64 cm); Pain 10/10; 19:26 BP 119 / 61; Pulse 83; Resp 20 S; Temp 98.6(O); Pulse Ox 96% on R/A; cc3 20:45 BP 127 / 67; Pulse 78; Resp 19 S; Pulse Ox 97% on R/A; cc3 21:05 BP 111 / 66; Pulse 82; Resp 19 S; Pulse Ox 96% on R/A; cc3 22:06 BP 120 / 58; Pulse 94; Resp 18 S; Pulse Ox 96% on R/A; cc3 23:10 BP 106 / 78; Pulse 81; Resp 18 S; Pulse Ox 96% on R/A; cc3 18:44 Body Mass Index 40.35 (113.40 kg, 167.64 cm) ED Course: 18:42 Patient arrived in ED. hj 18:44 Triage completed. hj 18:44 Arm band placed on left wrist. hj 18:53 Jono Bustamante PA is PHCP. jr8 18:53 Evans Lopez MD is Attending Physician. jr8 19:06 Lena Munoz is Primary Nurse. cc3 19:15 Patient has correct armband on for positive identification. Bed in low position. Call cc3 light in reach. Side rails up X 1. Pulse ox on. NIBP on. 19:20 Inserted saline lock: 20 gauge in right antecubital area, using aseptic technique. cc3 Blood collected. 20:24 Ultrasound completed. Patient tolerated well. sg3 20:24 US Extrmty Nonvasular Limited In Process Unspecified. EDMS 21:50 CT Pelvis w cont In Process Unspecified. EDMS 22:16 Tomas Mercado MD is Hospitalizing Provider. jr8 23:10 No provider procedures requiring assistance completed. Patient admitted, IV remains in cc3 place. Administered Medications: 20:08 Drug: Valium 5 mg Route: IVP; Site: right antecubital; rr5 20:35 Follow up: Response: No adverse reaction; Marked relief of symptoms cc3 20:15 Drug: LevaQUIN 500 mg Volume: 100 ml; Route: IVPB; Infused Over: 60 mins; Site: right cc3 antecubital; 21:15 Follow up: Response: No adverse reaction; IV Status: Completed infusion; IV Intake: cc3 100ml 21:15 Drug: vancoMYCIN 1 grams Route: IVPB; Infused Over: 2 hrs; Site: right antecubital; cc3 23:40 Follow up: Response: No adverse reaction; IV Status: Completed infusion; IV Intake: cc3 250ml 22:20 Drug: morphine 4 mg Route: IVP; Site: right antecubital; cc3 23:00 Follow up: Response: No adverse reaction; Pain is decreased cc3 22:25 Drug: Zofran 4 mg Route: IVP; Site: right antecubital; cc3 23:00 Follow up: Response: No adverse reaction; Nausea is decreased cc3 Intake: 21:15 IV: 100ml; Total: 100ml. cc3 23:40 IV: 250ml; Total: 350ml. cc3 Outcome: 22:16 Decision to Hospitalize by Provider. jr8 23:45 Admitted to Med/surg accompanied by tech, via wheelchair, room 225, with chart, Report cc3 called to ELLI Brower 23:45 Condition: stable 23:45 Instructed on the need for admit, Demonstrated understanding of instructions. 23:49 Patient left the ED. cc3 Signatures: Dispatcher [employer] EDMS Jono Bustamante PA PA jr8 Derrick Galaviz RN RN Rosalnia Neri 3 Lena Munoz cc3 Varun Brower RN RN rr5 Corrections: (The following items were deleted from the chart) 18:46 18:42 Initial Sepsis Screen: Does the patient meet any 2 criteria? No. Patient's initial sepsis screen is negative. Does the patient have a suspected source of infection? No. Patient's initial sepsis screen is negative. 18:47 18:44 Pulse 109bpm; Resp 18bpm; Pulse Ox 95% RA; Temp 98.3F Oral; 113.4 kg; Height 5 hj ft. 6 in.; BMI: 40.3; Pain 10/10; hj 19:55 19:26 BP 119 / 61; Pulse 83bpm; Resp 20bpm; Spontaneous; Pulse Ox 96% RA; cc3 cc3
[2019-04-20] MEDS ORDERED: MORPHINE 4 MG/ML SYR ONE (22:22)
[2019-04-20] MEDS ORDERED: ONDANSETRON 4 MG/2 ML VIAL IV PRN (22:23)
[2019-04-20] MEDS ORDERED: ONDANSETRON 4 MG/2 ML VIAL ONE (22:23)
[2019-04-20] MEDS ORDERED: ACETAMINOPHEN 500 MG TAB PO PRN (22:23)
[2019-04-20] MEDS ORDERED: Levofloxacin500mg IV 500 MG/100 ML BAG IV SCH (23:00)
[2019-04-21 00:12] VITALS: BMI 40.8
[2019-04-21] MEDS: NA CHLORIDE 0.9% 1,000 ML IV SCH ×3 (00:20→19:00)
[2019-04-21] MEDS: METRONIDAZOLE 500mg IVPB 500 MG/100 ML BAG IV SCH ×4 (00:20→19:45)
[2019-04-21] MEDS ORDERED: MORPHINE 4 MG/ML SYR IV PRN (01:57)
[2019-04-21 06:09] LABS: Absolute Lymphocytes (CBC) 1.7 K/uL (0.7-4.9); Basophils % 0.6 % (0-1.3); Lymphocytes % 10.4 % (15.3-44.8); MPV 8.7 fL (7.6-11.3); RBC Red Blood Cell Count 4.47 M/uL (4.33-5.43)
[2019-04-21 06:24] LABS: Albumin 3.1 g/dL (3.4-5.0); Bilirubin Total 0.6 mg/dL (0.2-1.0); Magnesium 2.2 mg/dL (1.8-2.4); Phosphorus 2.8 mg/dL (2.5-4.9); Potassium 4.2 mmol/L (3.5-5.1); Protein, Total 7.5 g/dL (6.4-8.2)
[2019-04-21] MEDS: ENOXAPARIN 40 MG/0.4 ML SQ SCH (09:00)
--- NOTE | 2019-04-21 09:45 | P.HP ---
Certification for Inpatient Patient admitted to: Inpatient With expected LOS: >2 Midnights Patient will require the following post-hospital care: None Practitioner: I am a practitioner with admitting privileges, knowledge of patient current condition, hospital course, and medical plan of care. Services: Services provided to patient in accordance with Admission requirements found in Title 42 Section 412.3 of the Code of Federal Regulations Patient History Date of Service: 04/20/19 Reason for admission: Perineal abscess History of Present Illness: Patient with known year old gentleman who came to the hospital with rectal pain. Patient had a lot of tenderness in came to the ER. Ultrasound revealed a perineal abscess. Patient walked downstairs and it ruptured. Patient had a large amount of purulent drainage. Patient is still having some drainage at this time. Patient has general surgery consultation. Patient would get IV antibiotics. Patient will be NPO pending surgical evaluation. Allergies No Known Drug Allergies Allergy (Verified 04/21/19 00:35) Unknown No Known Allergies Allergy (Uncoded 09/19/17 04:12) Unknown Home Medications: NK [No Home Meds] 04/21/19 - Past Medical/Surgical History Has patient received pneumonia vaccine in the past: Yes Diabetic: Yes -: diabetes Past Surgical History: Patient denies surgical history - Family History Father Family History: Reviewed- Non-Contributory - Social History Smoking Status: Current every day smoker Alcohol use: No CD- Drugs: No Caffeine use: Yes Place of Residence: Home Review of Systems 10-point ROS is otherwise unremarkable Physical Examination - Vital Signs Temperature: 97.7 F Blood Pressure: 117/73 Pulse: 76 Respirations: 20 Pulse Ox (%): 93 - Physical Exam General: Alert, In no apparent distress, Oriented x3 HEENT: Atraumatic, PERRLA, Mucous membr. moist/pink, EOMI, Sclerae nonicteric Neck: Supple, 2+ carotid pulse no bruit, No LAD, Without JVD or thyroid abnormality Respiratory: Clear to auscultation bilaterally, Normal air movement Cardiovascular: Regular rate/rhythm, Normal S1 S2 Gastrointestinal: Normal bowel sounds, Soft and benign, Non-distended, No tenderness Musculoskeletal: No clubbing, No swelling, No tenderness Integumentary: No rashes Neurological: Normal gait, Normal speech, Normal strength at 5/5 x4 extr, Normal tone, Sensation intact, Cranial nerves 3-12 intact, Normal affect Lymphatics: No axilla or inguinal lymphadenopathy Rectal: Induration, Tenderness - Studies Laboratory Data (last 24 hrs) 04/20/19 19:20: Sodium 134 L, Potassium 3.7, BUN 10, Creatinine 1.19, Glucose 227 H 04/20/19 19:20: WBC 15.5 H, Hgb 13.7, Hct 40.9, Plt Count 197 Assessment & Plan - Problems (Diagnosis) (1) Perineal abscess Current Visit: Yes Status: Acute (2) DM2 (diabetes mellitus, type 2) Current Visit: Yes Status: Acute - Plan 1. Continue with IV antibiotic 2. Continue with local wound care 3. Wound care consultation & surgical consultation 4. Gentle IV hydration 5. Monitor CBC 6. Strict blood sugar monitoring 7. Pain control 8. GI and DVT prophylaxis Discharge Plan: Home Plan to discharge in: 48 Hours - Advance Directives Does patient have a Living Will: No Does patient have a Durable POA for Healthcare: No - Code Status/Comfort Care Code Status Assessed: Yes Code Status: Full Code Critical Care: No Time Spent Managing PTS Care (In Minutes): 40
--- NOTE | 2019-04-21 13:18 | RAD REPORT ---
EXAM DESCRIPTION: CT - Pelvis W/Cont - 04/20/2019 9:50 pm CLINICAL HISTORY: The patient is 49 years old and is Male; perineum abscess TECHNIQUE: Axial computed tomography images of the pelvis with intravenous contrast. Sagittal and coronal reformatted images were created and reviewed. This CT exam was performed using one or more of the following dose reduction techniques: automated exposure control, adjustment of the mA and/or kV according to patient size, and/or use of iterative reconstruction technique. COMPARISON: No relevant prior studies available. FINDINGS: BOWEL: Unremarkable. No obstruction. No mucosal thickening. APPENDIX: No findings to suggest acute appendicitis. INTRAPERITONEAL SPACE: Unremarkable. No free air. No significant fluid collection. BLADDER: The bladder is well distended. REPRODUCTIVE: Unremarkable as visualized. BONES/JOINTS: No acute fracture. SOFT TISSUES: A 2.4 x 1.8 cm fluid collection with mild peripheral enhancement along the left pe rineal region is present. There is no subcutaneous air. VASCULATURE: Unremarkable. No lower abdominal aortic aneurysm. LYMPH NODES: Prominent inguinal lymph nodes are present, likely reactive. IMPRESSION: Moderate sized left perineal abscess. No subcutaneous air to suggest Nena's gangrene . Electronically signed by: Christine Winters MD 04/20/2019 9:58 PM CDT Due to temporary technical issues with the PACS/Fluency reporting system, reports are being signed by the in house radiologist as a courtesy to ensure prompt reporting. The interpreting radiologist is f ully responsible for the content of the report.
[2019-04-21] MEDS ORDERED: NA CHLORIDE 0.9% 1,000 ML ONE (15:30)
--- NOTE | 2019-04-21 16:00 | P.HP ---
Date of Service: 04/21/19 PC: This 49-year-old male presented to the emergency room with severe perirectal pain for diagnosis and treatment. HPC: Patient has noticed increasing pain and discomfort down between his legs right on the perineum. There is swelling and discomfort in that area. 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 PMH: Diabetes PSHx: Negative SOC: No known allergy SYS REVIEW: No cough, wheeze, shortness of breath. Denies any chest pain or palpitations. Has had its previous boils in the area but nothing like this. O/E the exercise tolerance HEENT: Awake alert vital signs are stable Chest: Chest movement equal bilaterally ABD: Soft LOCO: Has area function tenderness is along the perineal line at the ever portion of the thigh right side DATA: White cell count, CT scan shows absence IMPRESSION: Perineal abscess PLAN: Causing the operating room for incision, drainage, sharp debridement of this abscess. The risks of this procedure have been discussed. The possibility of bleeding, infection, need for further surgeries and procedures as well as recurrence were outlined. He understands and wants us to proceed.
--- NOTE | 2019-04-21 16:57 | P.PN ---
Subjective Date of Service: 04/21/19 Chief Complaint: Perineal abscess Patient seen and examined at bedside. Chart reviewed and case discussed with Dr. Stapleton and nursing staff. No acute events noted overnight. Improving. Review of Systems 10-point ROS is otherwise unremarkable Physical Examination - Vital Signs Temperature: 98.3 F Blood Pressure: 124/78 Pulse: 71 Respirations: 20 Pulse Ox (%): 91 - Physical Exam General: Alert, In no apparent distress, Oriented x3 HEENT: Atraumatic, PERRLA, EOMI Neck: Supple, JVD not distended Respiratory: Clear to auscultation bilaterally, Normal air movement Cardiovascular: Regular rate/rhythm, Normal S1 S2 Gastrointestinal: Normal bowel sounds, No tenderness Musculoskeletal: No tenderness Integumentary: No rashes Neurological: Normal speech, Normal tone, Normal affect Lymphatics: No axilla or inguinal lymphadenopathy Rectal: Induration, Tenderness - Studies Laboratory Data (last 24 hrs) 04/20/19 19:20: Sodium 134 L, Potassium 3.7, BUN 10, Creatinine 1.19, Glucose 227 H 04/20/19 19:20: WBC 15.5 H, Hgb 13.7, Hct 40.9, Plt Count 197 Assessment And Plan - Plan 1. Continue with IV antibiotic 2. Continue with local wound care 3. Surgery consultation, pending I and D in the OR today with Dr. stapleton 4. Continue IV hydration 5. Monitor CBC 6. Strict blood sugar monitoring 7. Pain control 8. GI and DVT prophylaxis Plan: Anticipate discharge in the next 24 hr after I and D if clinically stable.
[2019-04-21] MEDS ORDERED: FENTANYL CITR 100 MCG/2 ML ONE (17:49)
[2019-04-21] MEDS ORDERED: MIDAZOLAM HCL 2 MG/2 ML INJ ONE (17:49)
[2019-04-21] MEDS ORDERED: PROPOFOL 200 MG/20 ML VIAL IV ONE (17:49)
[2019-04-21] MEDS ORDERED: SUCCINYLCHOLINE 20 MG/ML (10 ML) IV ONE (17:55)
[2019-04-21 19:17] VITALS: O2SAT 95
[2019-04-21] MEDS ORDERED: Levofloxacin500mg IV 500 MG/100 ML BAG IV SCH (21:00)
[2019-04-22] MEDS: METRONIDAZOLE 500mg IVPB 500 MG/100 ML BAG IV SCH ×3 (00:22→12:34)
[2019-04-22] MEDS: NA CHLORIDE 0.9% 1,000 ML IV SCH (03:11)
[2019-04-22 04:46] LABS: Urine Appearance CLEAR; Urine Bilirubin NEGATIVE (NEG); Urine Blood NEGATIVE (NEG); Urine Color YELLOW; Urine Glucose NEGATIVE (NEG); Urine Protein NEGATIVE (NEG); Urine pH 6.5 (5.0-7.0)
[2019-04-22 04:49] LABS: Urine Microscopic Reflex NO UMIC
[2019-04-22] MEDS: ENOXAPARIN 40 MG/0.4 ML SQ SCH (08:40)
[2019-04-22 12:43] VITALS: BP 130/89; TEMP 97.8
[2019-04-22] MEDS ORDERED: D50W 25 GM/50 ML SYRINGE IV PRN (12:48)
[2019-04-22] MEDS ORDERED: GLUCAGON 1 MG/VIAL IM PRN (12:48)
[2019-04-22 15:16] LABS: Absolute Lymphocytes (CBC) 1.4 K/uL (0.7-4.9); Basophils % 0.5 % (0-1.3); Hematocrit 41.6 % (39.6-49.0); Lymphocytes % 12.5 % (15.3-44.8); RBC Red Blood Cell Count 4.54 M/uL (4.33-5.43)
--- NOTE | 2019-04-22 15:25 | P.OP ---
Preoperative diagnosis: Perirectal abscess Postoperative diagnosis: The same Primary procedure: Incision, drainage, and sharp debridement of perirectal abscess Anesthesia: General Estimated blood loss: Less than 10 cc Operative Technique: The patient brought the operating room placed supine on the table. After the induction of adequate general endotracheal anesthesia the area of the abdomen is perineum was prepped with a Betadine solution, he was draped in usual aseptic manner. Attention was turned towards the perineal area. Just above the anus extending over the perineal body up towards the lateral portion of the scrotum there was a tubular like structure that was seen. This was consistent with the abscess seen on CT scan. Gentle pressure showed that this was artery draining just at the skin margin of the anus itself. A probe was gently placed into this and this was found to be a tract leading and connecting these 2 areas together. Using 11 blade displays this portion was opened. We were able to curette the area ran placing a 2. Nylon in there to keep it open and draining during the postoperative period. There was now NG infiltrated with 0.25% Marcaine At the end of the procedure a sterile dressing was applied and he was in a stable condition when sent to the recovery room. Needle sponge instrument count were correct. The 2. Nylon was used as a drain. Complications: None Drain(s): Other (#2 nylon) Transferred to: Recovery Room Condition: Good
[2019-04-22] MEDS ORDERED: INSULIN -REGULAR HUMAN 50 UNIT/0.5 ML ML SQ SCH (16:30)
--- NOTE | 2019-04-22 17:22 | PN ---
Date of Progress Note: 04/22/2019 Subjective: Patient seen and examined. Chart reviewed and case discussed with RN. Patient states h is pain is better. Had procedure done yesterday. Medications: List reviewed. Physical Examination: Vital Signs: Temperature 98.3, heart rate 86, blood pressure 151/81, respirations 20, O2 96% on room air. General: Awake, alert, oriented x3. Morbidly obese male, in some mild distress. CV: S1, S2. Regular rate and rhythm. Peripheral pulses present. Respiratory: Moving air well bilaterally. No wheezing or stridor. Gastrointestinal: Abdomen is soft, nontender, nondistended. Positive bowel sounds. Extremities: No clubbing, cyanosis, or edema. Neurologic: Nonfocal. Cranial nerves 2 through 12 intact grossly. No focal neurological deficit. Skin: Perineal region incision site clean, dry, intact. Mild erythema is present. Tenderness to pa lpation. Psych: Mood is okay. Affect is full. Insight and judgment are good. Laboratory Data: Blood glucose levels ranging from 132 to 142. Blood cultures, no growth to date. Assessment And Plan: A 49-year-old male with: 1.Perirectal abscess status post incision and drainage. We will continue with IV antibiotics. We w ill follow up on culture results. WBC count is elevated. We will repeat CBC in a.m. Appreciate Dr. Stapleton's input. 2.Diabetes mellitus type 2, non-insulin requiring, with hyperglycemia and abscess. We will add slid ing scale insulin and monitor blood glucose levels. 3.Morbid obesity. Monitor cultures. CBC in a.m. If improving, we will discharge on oral antibiotics. Continue DVT pr ophylaxis with Lovenox. SA/MODL Voice ID: [id number] Report ID: [id number]
--- NOTE | 2019-04-24 13:02 | DS ---
Date of Discharge: 04/22/2019 Certified Art Therapist: Dr. Stapleton, General Surgery. Procedure: Incision and drainage of perineal abscess. Admitting Diagnoses: 1. Perineal abscess. 2. Diabetes mellitus type 2. 3. Morbid obesity. Discharge Diagnoses: 1. Perineal and perirectal abscess, status post incision and drainage. 2. Morbid obesity. 3. Diabetes mellitus type 2. Hospital Course: Patient is a 49-year-old male admitted to the hospital for perineal abscess. Patient was taken to the OR by Dr. Stapleton for I and D. He was started on IV antibiotics and responded well. Blood cultures did not show any growth. His white count trended down. He was then cleared for discharge and then sent home in stable condition. Activity: As tolerated. Medications: As per medication reconciliation list. Followup: Follow up with primary care physician in 2 to 3 days. Follow up with surgeon, Dr. Stapleton on Sunday. Return to ER for worsening condition. Diet: Diabetic. For physical exam findings, please see progress note dictated on day of discharge. Total time spent discharging the patient was 35 minutes. EVANS Voice ID: [id number] Report ID: [id number] VIRI
== END 2019-04-22 16:12 | disposition home or self-care (01) | DRG 982 ==
LOC: ER 18:39 → ERHOLD 22:39 → 2ND 23:11
PROVIDERS: ADMIT Hospitalist; ATTEND Family Medicine
PROC: 0D9Q00Z Drainage of Anus with Drainage Device, Open Approach (ICD-10-PCS; principal; 2019-04-21 14:45)
DX: E11.628 Type 2 diabetes mellitus with other skin complications (principal); K61.1 Rectal abscess; L02.215 Cutaneous abscess of perineum; Z68.41 Body mass index [BMI] 40.0-44.9, adult; E66.01 Morbid (severe) obesity due to excess calories; E11.65 Type 2 diabetes mellitus with hyperglycemia; F17.210 Nicotine dependence, cigarettes, uncomplicated
CPT/HCPCS: 36415; 72193; 76882; 80048; 80053; 81003; 82962; 83735; 84100; 84145; 85025; 87040; 96365; 96366; 96367; 96375; 99285; J0330; J1650; J2250; J2405; J2704; J3010; J3360; J7030; Q9967

== ENCOUNTER 2019-10-28 19:02 | Emergency (ER) | payer SELFPAY ==
--- OUTSIDE RECORDS SUMMARY | 2019-10-28 19:04 | XMS REPORT ---
:1970 [facility] Address [address] [place] [address] Dr. Gould [address] [place] [id number] Care Team Providers Name Role Phone Unavailable Unavailable Unavailable Problems This patient has no known problems. Allergies, Adverse Reactions, Alerts This patient has no known allergies or adverse reactions. Medications This patient has no known medications.
[2019-10-28] MEDS ORDERED: LIDOCAINE 1% MPF 30 ML VIAL ONE (19:26)
[2019-10-28] MEDS ORDERED: BUPIVACAINE 0.5% PF 10 ML VIAL ONE (19:26)
[2019-10-28] MEDS ORDERED: TETANUS & DIPHTHERIA TOX,ADULT 0.5 ML VIAL ONE (19:41)
--- NOTE | 2019-10-28 20:04 | RAD REPORT ---
EXAM DESCRIPTION: RAD -Hand Left 3 View - 10/28/2019 7:51 pm CLINICAL HISTORY: Left hand pain status post injury FINDINGS: Comminuted, avulsion fracture involves the third distal phalanx. No dislocation
[2019-10-28] MEDS ORDERED: CLINDAMYCIN 600MG/D5W 600 MG/50 ML BAG IV ONE (20:53)
[2019-10-28] MEDS ORDERED: HYDROCODONE/APAP 10/325 TAB ONE (21:27)
--- NOTE | 2019-10-28 21:46 | EDPHYS ---
Physician Documentation [facility] Name: Nilesh Flanagan Age: 49 yrs Sex: Male : 1970 Arrival Date: 10/28/2019 Time: 19:04 Bed 14 Private MD: ED Physician Lavell Power HPI: 10/28 19:26 This 49 yrs old Male presents to ER via Ambulatory with complaints of Finger pm1 Injury. 19:26 The patient or guardian reports a laceration, irregular. The complaints affect the left pm1 middle finger. Context: The problem was sustained at home, resulted from Finger was cut by router blade as he was routing the edge of a piece of wood against the router fence. Onset: The symptoms/episode began/occurred just prior to arrival. Modifying factors: The symptoms are alleviated by pressure to area. Associated signs and symptoms: The patient has no apparent associated signs or symptoms. The patient has experienced a previous episode, many years ago, left thumb power tool injury. The patient has not recently seen a physician, and does not have an established primary care provider. Historical: - Allergies: 19:13 No Known Allergies; ca1 - Home Meds: 19:13 None [Active]; ca1 - PMHx: 19:13 Diabetes - NIDDM; ca1 - PSHx: 19:13 None; ca1 - Immunization history:: Adult Immunizations up to date, Last tetanus immunization: < 5 years ago. - Coronavirus screen:: The patient has NOT traveled to [place] in the past 14 days. The patient has NOT had contact with known/suspected case of Coronavirus?. - Social history:: Smoking status: Patient reports the use of cigarette tobacco products, smokes one pack cigarettes per day. - Ebola Screening: : Patient negative for fever greater than or equal to 101.5 degrees Fahrenheit, and additional compatible Ebola Virus Disease symptoms Patient denies exposure to infectious person Patient denies travel to an Ebola-affected area in the 21 days before illness onset No symptoms or risks identified at this time. ROS: 19:26 Constitutional: Negative for fever, chills, and weight loss, Cardiovascular: Negative pm1 for chest pain, palpitations, and edema, Respiratory: Negative for shortness of breath, cough, wheezing, and pleuritic chest pain, Abdomen/GI: Negative for abdominal pain, nausea, vomiting, diarrhea, and constipation. 19:26 Neuro: Negative for headache, weakness, numbness, tingling, and seizure. 19:26 MS/extremity: Positive for injury or acute deformity, of the left middle finger. 19:26 Skin: Positive for laceration(s), of the left middle finger. Exam: 19:26 Constitutional: This is a well developed, well nourished patient who is awake, alert, pm1 and in no acute distress. Head/Face: Normocephalic, atraumatic. Chest/axilla: Normal chest wall appearance and motion. Nontender with no deformity. No lesions are appreciated. Cardiovascular: Regular rate and rhythm with a normal S1 and S2. No gallops, murmurs, or rubs. Normal PMI, no JVD. No pulse deficits. Respiratory: Lungs have equal breath sounds bilaterally, clear to auscultation and percussion. No rales, rhonchi or wheezes noted. No increased work of breathing, no retractions or nasal flaring. 19:26 MS/ Extremity: Pulses equal, no cyanosis. Neurovascular intact. Full, normal range of motion. 19:26 Skin: Appearance: normal except for affected area, injury, avulsion(s), laceration(s), the wound is approximately 3 cm(s), of the distal phalanx of left middle finger. Vital Signs: 19:13 BP 151 / 104; Pulse 93; Resp 16 S; Temp 98(O); Pulse Ox 100% on R/A; Weight 117.93 kg ca1 (R); Height 5 ft. 7 in. (170.18 cm) (R); Pain 9/10; 20:30 BP 139 / 92; Pulse 76; Resp 16; Pulse Ox 92% on R/A; jb4 21:15 BP 141 / 92; Pulse 81; Resp 16; Pulse Ox 94% on R/A; jb4 19:13 Body Mass Index 40.72 (117.93 kg, 170.18 cm) ca1 MDM: 19:16 Patient medically screened. tw4 20:25 Data reviewed: vital signs. Data interpreted: Pulse oximetry: on room air is 100 %. pm1 Interpretation: normal. 20:45 Physician consultation: Eva Jimenez was contacted at 20:40, regarding consult, pm1 patient's condition, and will see patient In her office tomorrow at 11 AM to perform revision of his finger. Wash out well, cover with Xeroform, dress it, and give a prescription fo Keflex for 5 days. 21:39 Counseling: I had a detailed discussion with the patient and/or guardian regarding: the pm1 historical points, exam findings, and any diagnostic results supporting the discharge/admit diagnosis, radiology results, the need for outpatient follow up, for definitive care, Dr. Jimenez tomorrow at 11 AM for definitive care. 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 Exp: jb4 08/15/2021. Lot #: [id number]. } Route: IM; Site: right deltoid; 22:14 Follow up: Response: No adverse reaction 4 20:52 Drug: Cleocin 600 mg Route: IVPB; Infused Over: 30 mins; Site: right wrist; jb4 21:22 Follow up: Response: No adverse reaction; IV Status: Completed infusion; IV Intake: jb4 100ml 21:20 Drug: [place] 10 mg-325 mg 1 tabs {Note: Rass score 0.} Route: PO; jb4 22:14 Follow up: Response: No adverse reaction; Pain is decreased; RASS: Alert and Calm (0) page hospital Disposition: 10/28/19 21:45 Discharged to Home. Impression: Laceration without foreign body of left middle finger with damage to nail, Comminuted avulsion fracture of third distal phalanx. - Condition is Stable. - Discharge Instructions: Finger Fracture, Laceration Care, Adult. - Prescriptions for Keflex 500 mg Oral Capsule - take 1 capsule by ORAL route every 6 hours for 5 days; 20 capsule. Tylenol- Codeine #3 300-30 mg Oral Tablet - take 2 tablets by ORAL route every 6 hours As needed; 20 tablet. - Medication Reconciliation Form, Thank You Letter, Antibiotic Education, Prescription Opioid Use form. - Follow up: Emergency Department; When: As needed; Reason: Worsening of condition. Follow up: Private Physician; When: 2 - 3 days; Reason: Recheck today's complaints, Continuance of care, Re-evaluation by your physician. - Problem is new. - Symptoms have improved. - Notes: Eva Jimenez MD Aesthetic \T\amp; Reconstructive Plastic Surgeon Associate to [facility] [phone] [place] [address], [address] [place], [place] [address] YOUR APPOINTMENT IS AT 11 AM. BE THERE EARLY. Addendum: 10/30/2019 08:11 Co-signature as Attending Physician, Lavell Power MD I agree with the assessment and t w4 plan of care. Signatures: Dispatcher [employer] EDMS Elva Palm RN RN Jose Moss NP DOG FOOD SHREDDER OPERATOR pm1 Rory Fowler RN RN jb4 Lavell Power MD MD tw4 Corrina Castellon RN RN ca1 Corrections: (The following items were deleted from the chart) 10/28 22:15 21:45 10/28/2019 21:45 Discharged to Home. Impression: Laceration without foreign body jb4 of left middle finger with damage to nail; Comminuted avulsion fracture of third distal phalanx. Condition is Stable. Forms are Medication Reconciliation Form, Thank You Letter, Antibiotic Education, Prescription Opioid Use. Follow up: Emergency Department; When: As needed; Reason: Worsening of condition. Follow up: Private Physician; When: 2 - 3 days; Reason: Recheck today's complaints, Continuance of care, Re-evaluation by your physician. Problem is new. Symptoms have improved. pm1
--- NOTE | 2019-10-28 21:46 | ER ---
Nurse's Notes [facility] Name: Nilesh Flanagan Age: 49 yrs Sex: Male : 1970 Arrival Date: 10/28/2019 Time: 19:04 Bed 14 Private MD: Diagnosis: Laceration without foreign body of left middle finger with damage to nail;Comminuted avulsion fracture of third distal phalanx Presentation: 10/28 19:10 Presenting complaint: Patient states: I was making cabinet drawers when my middle ca1 finger on the L hand slipped into the router. Transition of care: patient was not received from another setting of care. Onset of symptoms was October 28, 2019. Risk Assessment: Do you want to hurt yourself or someone else? Patient reports no desire to harm self or others. Initial Sepsis Screen: Does the patient meet any 2 criteria? No. Patient's initial sepsis screen is negative. Does the patient have a suspected source of infection? No. Patient's initial sepsis screen is negative. Care prior to arrival: None. 19:10 Method Of Arrival: Ambulatory ca1 19:10 Acuity: BRYNN 4 ca1 Historical: - Allergies: 19:13 No Known Allergies; ca1 - Home Meds: 19:13 None [Active]; ca1 - PMHx: 19:13 Diabetes - NIDDM; ca1 - PSHx: 19:13 None; ca1 - Immunization history:: Adult Immunizations up to date, Last tetanus immunization: < 5 years ago. - Coronavirus screen:: The patient has NOT traveled to [place] in the past 14 days. The patient has NOT had contact with known/suspected case of Coronavirus?. - Social history:: Smoking status: Patient reports the use of cigarette tobacco products, smokes one pack cigarettes per day. - Ebola Screening: : Patient negative for fever greater than or equal to 101.5 degrees Fahrenheit, and additional compatible Ebola Virus Disease symptoms Patient denies exposure to infectious person Patient denies travel to an Ebola-affected area in the 21 days before illness onset No symptoms or risks identified at this time. Screenin:30 Abuse screen: Denies threats or abuse. Nutritional screening: No deficits noted. jb4 Tuberculosis screening: No symptoms or risk factors identified. Fall Risk None identified. Assessment: 19:20 General: Appears in no apparent distress. uncomfortable, Behavior is calm, cooperative, jb4 appropriate for age. Pain: Complains of pain in left middle fingernail Pain does not radiate. Pain currently is 10 out of 10 on a pain scale. Neuro: Level of Consciousness is awake, alert, obeys commands, Oriented to person, place, time, situation. Cardiovascular: Patient's skin is warm and dry. Respiratory: Airway is patent Respiratory effort is even, unlabored, Respiratory pattern is regular, symmetrical. GI: No signs and/or symptoms were reported involving the gastrointestinal system. : No signs and/or symptoms were reported regarding the genitourinary system. EENT: No signs and/or symptoms were reported regarding the EENT system. Derm: Skin is pink, warm \T\ dry. Musculoskeletal: Circulation, motion, and sensation intact. Injury Description: Avulsion sustained to dorsal aspect of distal phalanx of left middle finger is partial. 20:54 Reassessment: Patient appears in no apparent distress at this time. Patient and/or jb4 family updated on plan of care and expected duration. Pain level reassessed. Patient is alert, oriented x 3, equal unlabored respirations, skin warm/dry/pink. 22:08 Reassessment: Patient appears in no apparent distress at this time. Patient and/or jb4 family updated on plan of care and expected duration. Pain level reassessed. Patient is alert, oriented x 3, equal unlabored respirations, skin warm/dry/pink. PT discharged home with information about his appointment tomorrow with the hand surgeon. Pt verbalized understanding of d/c and follow up instructions. Ambulated out of ED with steady gait. Vital Signs: 19:13 BP 151 / 104; Pulse 93; Resp 16 S; Temp 98(O); Pulse Ox 100% on R/A; Weight 117.93 kg ca1 (R); Height 5 ft. 7 in. (170.18 cm) (R); Pain 9/10; 20:30 BP 139 / 92; Pulse 76; Resp 16; Pulse Ox 92% on R/A; jb4 21:15 BP 141 / 92; Pulse 81; Resp 16; Pulse Ox 94% on R/A; jb4 19:13 Body Mass Index 40.72 (117.93 kg, 170.18 cm) ca1 ED Course: 19:04 Patient arrived in ED. cf2 19:12 Triage completed. ca1 19:13 Arm band placed on right wrist. ca1 19:16 Lavell Power MD is Attending Physician. tw4 19:30 Patient has correct armband on for positive identification. Bed in low position. Call jb4 light in reach. Side rails up X 1. Pulse ox on. NIBP on. 19:34 Rory Fowler, ELLI is Primary Nurse. jb4 20:27 Jose Moss NP is PHCP. pm1 21:30 No provider procedures requiring assistance completed. IV discontinued, intact, jb4 bleeding controlled, No redness/swelling at site. Pressure dressing applied. Dressings: xeform gauze, kerlex, and finger splint applied to left middle finger. 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 Exp: jb4 08/15/2021. Lot #: [id number]. } Route: IM; Site: right deltoid; 22:14 Follow up: Response: No adverse reaction jb4 20:52 Drug: Cleocin 600 mg Route: IVPB; Infused Over: 30 mins; Site: right wrist; jb4 21:22 Follow up: Response: No adverse reaction; IV Status: Completed infusion; IV Intake: jb4 100ml 21:20 Drug: [place] 10 mg-325 mg 1 tabs {Note: Rass score 0.} Route: PO; jb4 22:14 Follow up: Response: No adverse reaction; Pain is decreased; RASS: Alert and Calm (0) jb4 Intake: 21:22 IV: 100ml; Total: 100ml. jb4 Outcome: 21:45 Discharge ordered by . pm1 22:13 Discharged to home ambulatory, with friend. jb4 22:13 Condition: stable 22:13 Discharge instructions given to patient, Instructed on discharge instructions, follow up and referral plans. medication usage, Demonstrated understanding of instructions, follow-up care, medications, Prescriptions given X 2. 22:15 Patient left the ED. jb4 Signatures: Jose Moss NP OPTICAL EFFECTS LAYOUT PERSON pm1 Rory Fowler RN RN jb4 Lavell Power MD MD tw4 Corrina Castellon RN RN ca1 Nguyen Dickerson 2
== END 2019-10-28 22:15 | disposition home or self-care (01) ==
LOC: ER 19:02
DX: S61.313A Laceration without foreign body of left middle finger with damage to nail, initial encounter (principal); S62.633A Displaced fracture of distal phalanx of left middle finger, initial encounter for closed fracture; W31.89XA Contact with other specified machinery, initial encounter; Y93.89 Activity, other specified; Y92.9 Unspecified place or not applicable; Z23 Encounter for immunization
CPT/HCPCS: 90471; 90714; 96365; 99283

== ENCOUNTER 2022-01-10 09:08 | Emergency (ER) | payer SELFPAY ==
[2022-01-10 09:54] LABS: Absolute Lymphocytes (CBC) 1.4 K/uL (0.7-4.9); Hematocrit 50.7 % (39.6-49.0); Lymphocytes % 11.7 % (15.3-44.8); MPV 7.8 fL (7.6-11.3); RBC Red Blood Cell Count 5.69 M/uL (4.33-5.43)
[2022-01-10 09:57] LABS: Protime INR 1.04
[2022-01-10 10:08] LABS: Albumin 3.3 g/dL (3.4-5.0); Bilirubin Total 0.5 mg/dL (0.2-1.0); Potassium 4.1 mmol/L (3.5-5.1); Protein, Total 7.6 g/dL (6.4-8.2)
[2022-01-10] MEDS ORDERED: ONDANSETRON 4 MG/2 ML VIAL ONE (10:30)
[2022-01-10] MEDS ORDERED: MORPHINE 4 MG/ML SYR ONE (10:30)
--- NOTE | 2022-01-10 10:48 | RAD REPORT ---
EXAM DESCRIPTION: US - Extremity Venous Uni Ltd - 01/10/2022 10:40 am CLINICAL HISTORY: Pain COMPARISON: None. TECHNIQUE: Real-time sonographic evaluation of the left lower extremity deep venous system was perfo rmed. FINDINGS: Normal compressibility, flow augmentation, phasic flow and spontaneous flow are identified in the left lower extremity common femoral, superficial femoral, popliteal and posterior tibial vein s. No intraluminal filling defects seen. Several prominent lymph nodes seen in the left groin. IMPRESSION: No DVT in the left lower extremity.
--- NOTE | 2022-01-10 11:06 | RAD REPORT ---
EXAM DESCRIPTION: RAD - Tib Fib Left - 01/10/2022 10:38 am CLINICAL HISTORY: Lower leg pain and swelling, redness COMPARISON: None. FINDINGS: No fracture is identified. There is no dislocation or periosteal reaction noted. No acute or suspicious bony finding. No foreign body or other soft tissue abnormality. IMPRESSION: Negative left tibia & fibula examination.
[2022-01-10] MEDS ORDERED: NA CHLORIDE 0.9% 250 ML ONE (11:18)
[2022-01-10] MEDS ORDERED: VANCOMYCIN 1 GM/VIAL ONE (11:18)
[2022-01-10] MEDS ORDERED: levoFLOXacin 750 MG TAB ONE (11:18)
--- NOTE | 2022-01-10 12:40 | ER ---
Nurse's Notes [facility] Name: Nilesh Flanagan Age: 51 yrs Sex: Male : 1970 Arrival Date: 01/10/2022 Time: 09:10 Bed 13 Private MD: Diagnosis: Cellulitis of left lower limb Presentation: 01/10 09:31 Chief complaint: Patient states: Noticed lower Left leg swelling yesterday, stated the vg1 redness started out small and started to spread throughout the day, stated 'feels like fire'. Also states a couple of days prior was around either poison oak or poison laci. Stated took [place] 10-325 mg at 0900. Coronavirus screen: Vaccine status: Patient reports being unvaccinated. Client denies travel out of the [place] in the last 14 days. Ebola Screen: Patient denies exposure to infectious person. Patient denies travel to an Ebola-affected area in the 21 days before illness onset. Initial Sepsis Screen: Does the patient meet any 2 criteria? No. Patient's initial sepsis screen is negative. Does the patient have a suspected source of infection? No. Patient's initial sepsis screen is negative. Risk Assessment: Do you want to hurt yourself or someone else? Patient reports no desire to harm self or others. Onset of symptoms was January 09, 2022. 09:31 Method Of Arrival: Ambulatory vg1 09:31 Acuity: BRYNN 3 vg1 Triage Assessment: 09:34 General: Appears uncomfortable, Behavior is calm, cooperative. Pain: Complains of pain vg1 in left leg Pain currently is 3 out of 10 on a pain scale. at worst was 10 out of 10 on a pain scale. Derm: Rash noted that is red. Historical: - Allergies: 09:34 PENICILLINS; vg1 09:34 amoxicillin; vg1 - Home Meds: 09:34 [place] Oral [Active]; gabapentin oral [Active]; Insulin: Regular Sub-Q [Active]; vg1 - PMHx: 09:34 Diabetes - NIDDM; Neuropathy; vg1 - Immunization history:: Client reports having NOT received the Covid vaccine. - Social history:: Smoking status: Patient reports the use of cigarette tobacco products, smokes 1.5 packs per day. Screenin:37 Abuse screen: Denies threats or abuse. Denies injuries from another. Nutritional jg9 screening: No deficits noted. Tuberculosis screening: No symptoms or risk factors identified. Fall Risk None identified. Assessment: 10:00 Reassessment: No changes from previously documented assessment. Derm: Skin redness and jg9 swelling to left lower extremity. Vital Signs: 09:31 BP 142 / 69; Pulse 98; Resp 18; Temp 98.0; Pulse Ox 97% on R/A; Weight 115.67 kg; vg1 Height 5 ft. 6 in. (167.64 cm); Pain 3/10; 10:30 BP 152 / 63; Pulse 83; Resp 20 S; Pulse Ox 95% on R/A; jg9 11:00 BP 143 / 71; Pulse 86; Resp 18 S; Pulse Ox 94% on R/A; jg9 12:00 BP 151 / 73; Pulse 80; Resp 20 S; Pulse Ox 95% on R/A; jg9 13:00 BP 130 / 94; Pulse 71; Resp 20 S; Pulse Ox 94% on R/A; jg9 09:31 Body Mass Index 41.16 (115.67 kg, 167.64 cm) vg1 ED Course: 09:10 Patient arrived in ED. as 09:27 Jose Moss NP is PHCP. pm1 09:27 Evans Lopez MD is Attending Physician. pm1 09:32 Anni Robertson, ELLI is Primary Nurse. jg9 09:34 Triage completed. vg1 09:34 Arm band placed on. vg1 09:45 Inserted saline lock: 20 gauge in left antecubital area, using aseptic technique. Blood zm collected. 10:40 Tib Fib Left XRAY In Process Unspecified. EDMS 10:42 Extremity Venous Uni Ltd US In Process Unspecified. EDMS 12:21 Appears to be sleeping. jg9 12:37 Patient has correct armband on for positive identification. Bed in low position. Call jg9 light in reach. Side rails up X 1. 13:11 No provider procedures requiring assistance completed. jg9 13:19 IV discontinued. jg9 Administered Medications: 10:50 Drug: Zofran (Ondansetron) 4 mg Route: IVP; Site: right antecubital; jg9 13:18 Follow up: Response: No adverse reaction jg9 10:55 Drug: morphine 4 mg Route: IVP; Site: right antecubital; jg9 11:30 Follow up: Response: No adverse reaction; Pain is decreased jg9 11:19 Drug: LevaQUIN (levofloxacin) 750 mg Route: PO; jg9 13:12 Follow up: Response: No adverse reaction jg9 11:30 Dru grams of (vancoMYCIN 1 grams, NS 0.9% 250 ml) Route: IVPB; Infused Over: 2 hrs; jg9 Site: left antecubital; 13:05 Follow up: IV Status: Completed infusion; IV Intake: 250ml jg9 Intake: 13:05 IV: 250ml; Total: 250ml. jg9 Outcome: 12:40 Discharge ordered by MD. pm1 13:18 Discharged to home ambulatory. jg9 13:18 Condition: stable 13:18 Discharge instructions given to patient, Instructed on discharge instructions, follow up and referral plans. Demonstrated understanding of instructions, follow-up care, Prescriptions given X 2. 13:19 Patient left the ED. jg9 Signatures: Dispatcher [employer] EDAniya Jones Patrick, ASBESTOS REMOVER ASBESTOS REMOVER pm1 Cecilia Syed RN RN vg1 Anni Robertson RN RN jg9 Fay Izaguirre Corrections: (The following items were deleted from the chart) 09:36 09:31 Chief complaint: Patient states: Noticed lower Left leg swelling yesterday, vg1 stated the redness started out small and started to spread throughout the day, stated 'feels like fire'. Also states a couple of days prior was around either poison oak or poison laci. vg1
--- NOTE | 2022-01-10 12:40 | EDPHYS ---
Physician Documentation [facility] Name: Nilesh Flanagan Age: 51 yrs Sex: Male : 1970 Arrival Date: 01/10/2022 Time: 09:10 Bed 13 Private MD: ED Physician Evans Lopez HPI: 01/10 09:36 This 51 yrs old Male presents to ER via Ambulatory with complaints of Leg Swelling. pm1 09:36 The patient presents with swelling, pain and redness. The complaints affect the Distal pm1 aspect of the left lower leg. Context: The problem was sustained outdoors, resulted from Possibly from insect bite or poison laci/oak, the patient can fully bear weight, the patient is able to ambulate. Onset: The symptoms/episode began/occurred 2 day(s) ago. Modifying factors: The symptoms are alleviated by nothing. the symptoms are aggravated by nothing. Associated signs and symptoms: Pertinent positives: Subjective fever, Pertinent negatives calf tenderness, numbness, tingling. Treatment prior to arrival includes: prescription medications, hydrocodone. Severity of symptoms: in the emergency department the symptoms are actually worse. The patient has not recently seen a physician. Historical: - Allergies: 09:34 PENICILLINS; vg1 09:34 amoxicillin; vg1 - Home Meds: 09:34 [place] Oral [Active]; gabapentin oral [Active]; Insulin: Regular Sub-Q [Active]; vg1 - PMHx: 09:34 Diabetes - NIDDM; Neuropathy; vg1 - Immunization history:: Client reports having NOT received the Covid vaccine. - Social history:: Smoking status: Patient reports the use of cigarette tobacco products, smokes 1.5 packs per day. ROS: 09:36 Cardiovascular: Negative for chest pain, palpitations, and edema, Respiratory: Negative pm1 for shortness of breath, cough, wheezing, and pleuritic chest pain, Abdomen/GI: Negative for abdominal pain, nausea, vomiting, diarrhea, and constipation, Back: Negative for injury and pain, MS/Extremity: Negative for injury and deformity. 09:36 Neuro: Negative for headache, weakness, numbness, tingling, and seizure. 09:36 Constitutional: Positive for Subjective fever. 09:36 Skin: Positive for swelling, of the Distal aspect of left lower leg. 09:36 All other systems are negative. Exam: 09:36 Constitutional: This is a well developed, well nourished patient who is awake, alert, pm1 and in no acute distress. Head/Face: Normocephalic, atraumatic. 09:36 Back: No spinal tenderness. No costovertebral tenderness. Full range of motion. 09:36 Eyes: Exam is negative for acute changes, Periorbital structures: appear normal, Extraocular movements: no acute changes. 09:36 ENT: Exam is negative for acute changes, Mouth: no acute changes, Lips: normal, moist, Oral mucosa: normal, pink and intact, moist. 09:36 Cardiovascular: Exam negative for acute changes, Rate: normal, Rhythm: regular, Pulses: no pulse deficits are appreciated, Heart sounds: normal. 09:36 Respiratory: Exam negative for acute changes, respiratory distress, shortness of breath, Breath sounds: are clear throughout. 09:36 Abdomen/GI: Inspection: abdomen appears normal, Palpation: abdomen is soft and non-tender, in all quadrants. 09:36 Skin: Appearance: normal except for affected area, cellulitis, well demarcated, on the Circumferential left lower leg approximately 4 cm in width. 09:36 Neuro: Exam negative for acute changes, Orientation: is normal, Mentation: is normal, Motor: is normal, moves all fours. Vital Signs: 09:31 BP 142 / 69; Pulse 98; Resp 18; Temp 98.0; Pulse Ox 97% on R/A; Weight 115.67 kg; vg1 Height 5 ft. 6 in. (167.64 cm); Pain 3/10; 10:30 BP 152 / 63; Pulse 83; Resp 20 S; Pulse Ox 95% on R/A; jg9 11:00 BP 143 / 71; Pulse 86; Resp 18 S; Pulse Ox 94% on R/A; jg9 12:00 BP 151 / 73; Pulse 80; Resp 20 S; Pulse Ox 95% on R/A; jg9 13:00 BP 130 / 94; Pulse 71; Resp 20 S; Pulse Ox 94% on R/A; jg9 09:31 Body Mass Index 41.16 (115.67 kg, 167.64 cm) vg1 MDM: 09:29 Patient medically screened. pm1 11:03 Data reviewed: vital signs. Data interpreted: Pulse oximetry: on room air is 97 %. pm1 Interpretation: normal. 11:03 Counseling: I had a detailed discussion with the patient and/or guardian regarding: the pm1 historical points, exam findings, and any diagnostic results supporting the discharge/admit diagnosis, lab results, radiology results, the need for further work-up and treatment in the hospital. 12:36 Refusal of service: The patient/guardian displays adequate decision making capability pm1 and despite a detailed discussion of alternatives, benefits, risks, and consequences refuses: Admission to the hospital for further work-up and treatment, Patient does not want to stay in the hospital due to concerns over hospitalization bills and taking care of and feeding his two dogs. Informed the patient that I would like to keep him in the hospital because he needs IV antibiotics for circumferential cellulitis to his lower left extremity and he is diabetic. He received antibiotics in anticipation that he would be admitted. He is leaving AMA and I will give him PO antibiotics. Instructed him to return to the ER if his condition does not improve or if worsens for admission to the hosptial. 01/10 09:35 Order name: CBC with Diff; Complete Time: 10:08 pm1 01/10 09:35 Order name: CMP; Complete Time: 10:22 pm1 01/10 09:35 Order name: PT-INR; Complete Time: 10:08 pm1 01/10 09:35 Order name: Ptt, Activated; Complete Time: 10:08 pm1 01/10 09:35 Order name: Extremity Venous Uni Ltd US; Complete Time: 10:53 pm1 01/10 09:36 Order name: Lactate; Complete Time: 10:22 pm1 01/10 09:35 Order name: Tib Fib Left XRAY; Complete Time: 11:24 pm1 01/10 09:35 Order name: IV Saline Lock; Complete Time: 11:04 pm1 Administered Medications: 10:50 Drug: Zofran (Ondansetron) 4 mg Route: IVP; Site: right antecubital; jg9 13:18 Follow up: Response: No adverse reaction jg9 10:55 Drug: morphine 4 mg Route: IVP; Site: right antecubital; jg9 11:30 Follow up: Response: No adverse reaction; Pain is decreased jg9 11:19 Drug: LevaQUIN (levofloxacin) 750 mg Route: PO; jg9 13:12 Follow up: Response: No adverse reaction jg9 11:30 Dru grams of (vancoMYCIN 1 grams, NS 0.9% 250 ml) Route: IVPB; Infused Over: 2 hrs; jg9 Site: left antecubital; 13:05 Follow up: IV Status: Completed infusion; IV Intake: 250ml jg9 Disposition: 14:24 Co-signature as Attending Physician, Evans Lopez MD. rn Disposition Summary: 01/10/22 12:40 Discharge Ordered Location: Home pm1 Problem: new pm1 Symptoms: have improved pm1 Condition: Undetermined pm1 Diagnosis - Cellulitis of left lower limb pm1 Followup: pm1 - With: Emergency Department - When: As needed - Reason: Worsening of condition Followup: pm1 - With: Private Physician - When: Upon discharge from the Emergency Department - Reason: Recheck today's complaints, Continuance of care, Re-evaluation by your physician Discharge Instructions: - Discharge Summary Sheet pm1 - Cellulitis, Adult pm1 Forms: - Medication Reconciliation Form pm1 - Thank You Letter pm1 - Antibiotic Education pm1 - Prescription Opioid Use pm1 Prescriptions: - levofloxacin 750 mg Oral tablet - take 1 tablet by ORAL route once daily for 10 days; 10 tablet; Refills: 0, pm1 Product Selection Permitted - Bactrim DS 800-160 mg Oral Tablet - take 1 tablet by ORAL route every 12 hours for 10 days; 20 tablet; Refills: 0, pm1 Product Selection Permitted Signatures: Dispatcher [employer] Evans Ortiz MD MD rn Marinas, Patrick, NP HIDE INSPECTOR pm1 Cecilia Syed RN RN vg1 Anni Robertson RN RN jg9
[2022-01-10 13:34] VITALS: TEMP 98
[2022-01-10 13:42] VITALS: BP 130/94; O2SAT 94
== END 2022-01-10 13:19 | disposition home or self-care (01) ==
LOC: ER 09:08
DX: L03.116 Cellulitis of left lower limb (principal); E11.40 Type 2 diabetes mellitus with diabetic neuropathy, unspecified; F17.210 Nicotine dependence, cigarettes, uncomplicated; Z79.4 Long term (current) use of insulin; Z88.0 Allergy status to penicillin; Z88.1 Allergy status to other antibiotic agents
CPT/HCPCS: 36415; 80053; 83605; 85025; 85610; 85730; 93971; 96365; 96366; 96375; 99284; J2405; J3370; J7050